=== PATIENT | female | born 1990 | race Caucasian/White ===

== ENCOUNTER 2016-06-26 11:29 | Emergency (ER) | payer OTHER, MEDICAID ==
[2016-06-26] MEDS ORDERED: predniSONE 20 MG TABLET PO STA (12:22)
[2016-06-26] MEDS ORDERED: SULFAMETH/TRIMETH DS 800/160 MG TABLET PO STA (12:22)
[2016-06-26] MEDS ORDERED: predniSONE 20 MG TABLET ONE (12:24)
[2016-06-26] MEDS ORDERED: SULFAMETH/TRIMETH DS 800/160 MG TABLET PO ONE (12:25)
== END 2016-06-26 12:38 | disposition home or self-care (01) ==
DX: L03.112 Cellulitis of left axilla (principal); L30.9 Dermatitis, unspecified; F17.200 Nicotine dependence, unspecified, uncomplicated
CPT/HCPCS: 99283; A9270; J7512

== ENCOUNTER 2016-10-26 12:44 | Emergency (ER) | payer MEDICAID, OTHER ==
[2016-10-26 12:55] VITALS: BP 144/88
[2016-10-26] MEDS ORDERED: LIDOCAINE-EPINEPH-TETRACAINE 3 ML SYRINGE TOP STA (14:58)
[2016-10-26] MEDS ORDERED: IBUPROFEN 400 MG TABLET PO STA (14:58)
[2016-10-26] MEDS ORDERED: ACETAMINOPHEN 325 MG TABLET PO STA (14:58)
[2016-10-26] MEDS ORDERED: LIDOCAINE-EPINEPH-TETRACAINE 3 ML SYRINGE TOP ONE (15:06)
[2016-10-26] MEDS ORDERED: IBUPROFEN 400 MG TABLET PO ONE (15:06)
[2016-10-26] MEDS ORDERED: ACETAMINOPHEN 325 MG TABLET PO ONE (15:07)
--- NOTE | 2016-10-26 15:34 | ED Physician Documentation ---
History of Present Illness - Stated complaint Stated Complaint: FEMALE - Chief complaint Chief Complaint: General - Additonal information Additional information: hx from pt 26 f denies preg L inguinal abscess Review of Systems : denies: Now EGA Skin: reports: Lesions PD PAST MEDICAL HISTORY - Past Medical History Past Medical History: No : None HEENT: Other Psych: None Musculoskeletal: None Derm: Eczema - Past Surgical History Past Surgical History: Yes Ortho: ACL reconstruction - Present Medications Home Medications: Ambulatory Orders Medication Instructions Recorded Confirmed Prednisone 40 mg PO DAILY #10 tablet 06/26/16 Sulfamethoxazole/Trimethoprim 1 each PO BID #14 tablet 06/26/16 [Bactrim Ds Tablet] Sulfamethox/Trimeth 800/160 1 each PO BID #14 tablet 10/26/16 [Bactrim Ds 800/160] - Allergies Allergies/Adverse Reactions: Allergies Allergy/AdvReac Type Severity Reaction Status Date / Time No Known Drug Allergies Allergy Verified 12/31/15 11:45 - Social History Does the pt smoke?: Yes Smoking Status: Current every day smoker Does the pt drink ETOH?: Yes Does the pt have substance abuse?: No - Immunizations Immunizations are current?: No - POLST Patient has POLST: No PD ED PE NORMAL - Vitals Vital signs reviewed: Yes - Cardiac Cardiac: RRR - Respiratory Respiratory: Clear bilaterally - Derm Derm: Other (approx 1 X 2 cm abscess inferior medial inguinal region ) Results - Vitals Vitals: Vital Signs - 24 hr 10/26/16 12:52 Temperature 36.3 C L Heart Rate 99 Respiratory 16 Rate Blood Pressure 144/88 H O2 Saturation 99 Oxygen O2 Source Room air Procedures - Abscess I&D (location) L inguinal Preparation: Betadine, LET Incision: Incised with scalpel, Purulent drainage (suprisingly large amt - approx 10 cc), Loculations broken, Culture obtained. No: Packed (fully evacuated no further fluctuance) Other: Pt tolerated well, Dressing applied, Antibiotic prescribed Departure - Departure Disposition: 01 Home, Self Care Clinical Impression: Abscess Condition: Good Instructions: ED Abscess IandD Prescriptions: Sulfamethox/Trimeth 800/160 [Bactrim Ds 800/160] 1 each PO BID #14 tablet Comments: Apply warm compresses several times a day to encourage drainage. Take the antibiotic as prescribed. Tylenol and motrin for the pain Return if worse And please follow up with your PMD to get your blood pressure rechecked - it was high today Forms: Activity restrictions
== END 2016-10-26 15:44 | disposition home or self-care (01) ==
LOC: ED 12:44
DX: L02.214 Cutaneous abscess of groin (principal); F17.200 Nicotine dependence, unspecified, uncomplicated
CPT/HCPCS: 10060; 87070; 87205; 99283; A9270

== ENCOUNTER 2016-10-28 14:05 | Emergency (ER) | payer MEDICAID ==
[2016-10-28 14:30] VITALS: BP 111/83
[2016-10-28] MEDS ORDERED: LIDOCAINE 2%-EPI 1:100000 20 ML MDV ONE (15:22)
--- NOTE | 2016-10-28 15:38 | ED Physician Documentation ---
PD HPI WOUND RECHECK - Stated complaint Stated Complaint: POSSIBLE CYST - Chief complaint Chief Complaint: Wound - Histroy obtained from History obtained from: Patient, Family - History of Present Illness Location: Other (L groin) Timing - onset: How many days ago (3) Pain level max: 8 Pain level now: 6 Associated symptoms: Redness, Swelling, Drainage, Pain. No: Fever Similar symptoms before: Diagnosis (abscess) Recently seen: Emergency Dept (drained 2 days ago, now increasing in size and pain.) Review of Systems Constitutional: denies: Fever, Chills Cardiac: denies: Chest pain / pressure Respiratory: denies: Cough GI: denies: Abdominal Pain, Nausea, Vomiting, Diarrhea : denies: Dysuria, Frequency, Hesitancy, Now EGA PD PAST MEDICAL HISTORY - Past Medical History Past Medical History: No : None HEENT: Other Psych: None Musculoskeletal: None Derm: Eczema - Past Surgical History Past Surgical History: Yes Ortho: ACL reconstruction - Present Medications Home Medications: Ambulatory Orders Medication Instructions Recorded Confirmed Prednisone 40 mg PO DAILY #10 tablet 06/26/16 Sulfamethoxazole/Trimethoprim 1 each PO BID #14 tablet 06/26/16 [Bactrim Ds Tablet] Sulfamethox/Trimeth 800/160 1 each PO BID #14 tablet 10/26/16 [Bactrim Ds 800/160] - Allergies Allergies/Adverse Reactions: Allergies Allergy/AdvReac Type Severity Reaction Status Date / Time No Known Drug Allergies Allergy Verified 10/28/16 14:30 - Social History Does the pt smoke?: Yes Smoking Status: Current every day smoker Does the pt drink ETOH?: Yes Does the pt have substance abuse?: No - Immunizations Immunizations are current?: No - POLST Patient has POLST: No PD ED PE NORMAL - Vitals Vital signs reviewed: Yes - General General: Alert and oriented X 3, No acute distress - Derm Derm: Warm and dry - Extremities Extremities: Other (L groin - abscess 2x4cm, indurated, fluctuant. NVI) - Neuro Neuro: Alert and oriented X 3 - Psych Psych: Normal mood Results - Vitals Vitals: Vital Signs - 24 hr 10/28/16 14:28 Temperature 36.5 C Heart Rate 91 Respiratory 12 Rate Blood Pressure 111/83 H O2 Saturation 100 Oxygen O2 Source Room air Procedures - Abscess I&D (location) L groin Preparation: Confirmed with ultrasound, Lidocaine 2 %, With epi Incision: Incised with scalpel, Needle aspiration, Purulent drainage, Loculations broken, Packed, Culture obtained Other: Pt tolerated well, Dressing applied, Antibiotic prescribed (prior visit) PD MEDICAL DECISION MAKING - ED course Complexity details: reviewed old records, reviewed results, considered differential, d/w patient, d/w family ED course: Patient with a abscess to the left groin. This was incised and drained. Tolerated well. Patient is already started on antibiotics. Minimal surrounding cellulitis. Culture was not redone as this was performed on the first drainage. Patient counseled regarding signs and symptoms for which I believe and urgent re-evaluation would be necessary. Patient with good understanding of and agreement to plan and is comfortable going home at this time This document was made in part using voice recognition software. While efforts are made to proofread this document, sound alike and grammatical errors may occur. Departure - Departure Disposition: 01 Home, Self Care Clinical Impression: Abscess Condition: Good Instructions: ED Abscess IandD Follow-Up: your,doctor in 3 days for wound check [Other] Comments: Take all antibiotics until gone. Return if you worsen. This should improve over the next 2-3 days. Forms: Activity restrictions Discharge Date/Time: 10/28/16 16:01
== END 2016-10-28 16:01 | disposition home or self-care (01) ==
LOC: ED 14:05
DX: L02.214 Cutaneous abscess of groin (principal); F17.200 Nicotine dependence, unspecified, uncomplicated
CPT/HCPCS: 10060; 99283

== ENCOUNTER 2017-01-04 17:52 | Emergency (ER) | payer OTHER, MEDICAID ==
[2017-01-04 18:00] VITALS: BP 128/81
[2017-01-04 18:21] LABS: BILIRUBIN,URINE NEGATIVE (NEGATIVE); PH,URINE 7.5 PH (5.0-7.5)
[2017-01-04 18:22] LABS: UA w/ MICROSCOPIC CHARGE YES
[2017-01-04 18:23] LABS: HCG UR QUAL NEGATIVE
[2017-01-04 18:37] LABS: RAPID STREP SCREEN REAGENT QC YELLOW (YELLOW)
[2017-01-04 18:50] LABS: UR CULTURE IF IND NOT INDICATED; WBC,URINE 0-3 /HPF (0-5)
== END 2017-01-04 18:50 | disposition left against medical advice (07) ==
LOC: ED 17:52
DX: Z53.21 Procedure and treatment not carried out due to patient leaving prior to being seen by health care provider (principal)
CPT/HCPCS: 81001; 81003; 81025; 87070; 87086; 87430

== ENCOUNTER 2017-01-16 14:06 | Emergency (ER) | payer MEDICAID, OTHER ==
--- NOTE | 2017-01-16 17:10 | ED Physician Documentation ---
PD HPI FEMALE - Stated complaint Stated Complaint: FEMALE - Chief complaint Chief Complaint: Wound - History obtained from History obtained from: Patient - History of Present Illness Timing - onset: Yesterday Timing - details: Abrupt onset, Still present (getting bigger quickly) Associated symptoms: Other (abscess left inguinal area). 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 HEENT: Other Psych: None Musculoskeletal: None Derm: Eczema - Past Surgical History Past Surgical History: Yes Ortho: ACL reconstruction - Present Medications Home Medications: Ambulatory Orders Medication Instructions Recorded Confirmed HYDROcod/ACETAM 5/325 [[place] 5/325] 1 tab PO Q6H PRN #15 tablet 01/16/17 Sulfamethox/Trimeth 800/160 1 each PO BID #14 tablet 01/16/17 [Bactrim Ds 800/160] - Allergies Allergies/Adverse Reactions: Allergies Allergy/AdvReac Type Severity Reaction Status Date / Time No Known Drug Allergies Allergy Verified 01/04/17 17:58 - Social History Does the pt smoke?: Yes Smoking Status: Current every day smoker Does the pt drink ETOH?: Yes Does the pt have substance abuse?: No - Immunizations Immunizations are current?: No - POLST Patient has POLST: No PD ED PE NORMAL - Vitals Vital signs reviewed: Yes - General General: Alert and oriented X 3, No acute distress, Well developed/nourished - Female Female : Deferred - Back Back: No CVA TTP - Derm Derm: Normal color, Warm and dry, Other (left inguinal crease with small 2 cm abscess but is red/warm/tender. ) - Neuro Neuro: Alert and oriented X 3, No motor deficit, No sensory deficit Results - Vitals Vitals: Oxygen O2 Source Room air Procedures - Abscess I&D (location) left inguinal crease Preparation: Lidocaine 1%, With epi Incision: Incised with scalpel, Purulent drainage, Irrigated, Packed. No: Culture obtained Other: Pt tolerated well, Dressing applied, Antibiotic prescribed PD MEDICAL DECISION MAKING - ED course Complexity details: reviewed results (recurrent abscess same area (somewhat recent though) so talked with her about removal of infection sac after wound healed.), considered differential, d/w patient Departure - Departure Disposition: 01 Home, Self Care Clinical Impression: Inguinal abscess Condition: Stable Record reviewed to determine appropriate education?: Yes Instructions: ED Staph Infec Abx Tx Only Follow-Up: [facility] [Provider Group] Tanvi Aragon DO [Provider Admit Priv/Credential] - Prescriptions: HYDROcod/ACETAM 5/325 [[place] 5/325] 1 tab PO Q6H PRN #15 tablet PRN Reason: Pain Sulfamethox/Trimeth 800/160 [Bactrim Ds 800/160] 1 each PO BID #14 tablet Comments: Warm towels or soaks to the area to increase blood flow and help fight infection a few times a day. Tylenol or ibuprofen if needed for pain. Add hydrocodone if needed for worse pain. Bactrim twice daily for a week for the infection. He can remove the wick or allowed to fall out after a day or so. Recheck if the infection does not seem all improved over the next few days. Once it is resolved, follow-up with gynecology or dermatology with the idea of having the cyst sac removed so as to prevent recurrent infection in that same spot. Discharge Date/Time: 01/16/17 18:19
[2017-01-16] MEDS ORDERED: IBUPROFEN 600 MG TABLET PO STA (17:34)
[2017-01-16] MEDS ORDERED: SULFAMETH/TRIMETH DS 800/160 MG TABLET PO STA (17:34)
[2017-01-16] MEDS ORDERED: HYDROcod/ACETAM 5/325 MG TABLET PO STA (17:34)
[2017-01-16] MEDS ORDERED: SULFAMETH/TRIMETH DS 800/160 MG TABLET PO ONE (17:47)
[2017-01-16] MEDS ORDERED: HYDROcod/ACETAM 5/325 MG TABLET ONE (17:47)
[2017-01-16] MEDS ORDERED: IBUPROFEN 600 MG TABLET PO ONE (17:48)
[2017-01-16 18:09] VITALS: BP 133/62
== END 2017-01-16 18:19 | disposition home or self-care (01) ==
LOC: ED 14:06
DX: L02.214 Cutaneous abscess of groin (principal); F17.200 Nicotine dependence, unspecified, uncomplicated
CPT/HCPCS: 10060; 99283; A9270

== ENCOUNTER 2018-06-02 13:04 | Emergency (ER) | payer MEDICAID, OTHER ==
[2018-06-02 13:21] VITALS: BP 125/67
[2018-06-02] MEDS ORDERED: TETANUS/DIPHTHERIA/PERTUSSIS 0.5 ML SYRINGE IM ONE (14:16)
[2018-06-02] MEDS ORDERED: LIDOCAINE 2% 10 ML MDV SUBQ STA (14:16)
--- NOTE | 2018-06-02 14:23 | ED Physician Documentation ---
PD HPI UPPER EXT INJURY - Stated complaint Stated Complaint: R INDEX FINGER LAC - Chief complaint Chief Complaint: Laceration - History obtained from History obtained from: Patient - History of Present Illness Location: Right, Finger (index) Type of injury: Laceration (with knife at home) Where injury occurred: Home Timing - onset: How many hours ago (1) Timing - duration: Hours (1) Timing - details: Abrupt onset Pain level max: 4 Pain level now: 2 Improved by: Rest Worsened by: Moving, Palpating Associated symptoms: No: Weakness, Numbness, Tingling, Swelling Contributing factors: No: Anticoagulated Similar symptoms before: Has not had sx before Recently seen: Not recently seen - Additonal information Additional information: unknown last tetanus shot. 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 HEENT: Other Psych: None Musculoskeletal: None Derm: Eczema - Past Surgical History Past Surgical History: Yes Ortho: ACL reconstruction - Present Medications Home Medications: Ambulatory Orders Medication Instructions Recorded Confirmed Pnv No.95/Ferrous Fum/Folic AC 1 each PO 06/02/18 [ Caplet] - Allergies Allergies/Adverse Reactions: Allergies Allergy/AdvReac Type Severity Reaction Status Date / Time No Known Drug Allergies Allergy Verified 06/02/18 14:12 - Social History Does the pt smoke?: Yes Smoking Status: Current every day smoker Does the pt drink ETOH?: Yes Does the pt have substance abuse?: No - Immunizations Immunizations are current?: No - POLST Patient has POLST: No PD ED PE NORMAL - Vitals Vital signs reviewed: Yes - General General: Alert and oriented X 3, No acute distress - Derm Derm: Warm and dry - Extremities Extremities: Other (R index finger - 2.5 cm linear laceration just proximal to the PIP joint, lateral aspect. flap) - Neuro Neuro: Alert and oriented X 3 Results - Vitals Vitals: Vital Signs - 24 hr 06/02/18 13:18 Temperature 36.6 C Heart Rate 94 Respiratory 16 Rate Blood Pressure 125/67 O2 Saturation 100 Oxygen O2 Source Room air Procedures - Laceration (location) R index finger Length in cm: 2.5 Wound type: Linear, Flap, Clean Neurovascular status: Sensory intact, Motor intact, Vascular intact Tendon involvement: Tendon intact Anesthesia: Lidocaine 2% (transthecal block) Skin layer closure: Nylon, Size #-0 - enter number (4), Sutures - enter # (5) Other: Patient tolerated well, No complications, Neurovascular intact, Tetanus booster given Complexity: Simple PD MEDICAL DECISION MAKING - ED course Complexity details: considered differential, d/w patient ED course: 27-year-old female with a right index finger laceration. This was repaired. Tolerated well. Neurovascularly intact. No foreign bodies. No tendon or vascular injury. Warnings of infection and instructions on wound care given at bedside. Also counseled on how to minimize scarring. Patient counseled regarding signs and symptoms for which I believe and urgent re-evaluation would be necessary. Patient with good understanding of and agreement to plan and is comfortable going home at this time This document was made in part using voice recognition software. While efforts are made to proofread this document, sound alike and grammatical errors may occur. Departure - Departure Disposition: 01 Home, Self Care Clinical Impression: Finger laceration Qualifiers: Encounter type: initial encounter Finger: index finger Damage to nail status: without damage Foreign body presence: without foreign body Laterality: right Qualified Code(s): S61.210A - Laceration without foreign body of right index finger without damage to nail, initial encounter Condition: Good Instructions: ED Laceration Hand Follow-Up: Provider,Other [Primary Care Provider] - Within 1 week Comments: Keep the wound clean. Follow-up with your doctor for further care. The stitches should be removed in 10-14 days either with your doctor or here. Return if you notice redness, swelling or drainage from the wound Discharge Date/Time: 06/02/18 15:10
[2018-06-02] MEDS ORDERED: BACITRACIN OINT TOP STA (15:01)
[2018-06-02] MEDS ORDERED: BACITRACIN OINT TOP ONE (15:03)
== END 2018-06-02 15:10 | disposition home or self-care (01) ==
LOC: ED 13:04
DX: S61.210A Laceration without foreign body of right index finger without damage to nail, initial encounter (principal); W26.0XXA Contact with knife, initial encounter; Y93.89 Activity, other specified; Y92.009 Unspecified place in unspecified non-institutional (private) residence as the place of occurrence of the external cause; F17.200 Nicotine dependence, unspecified, uncomplicated
CPT/HCPCS: 12001; 90471; 90715; 99282; 99283; A9270

== ENCOUNTER 2018-08-22 08:13 | Outpatient (CLI) | payer OTHER ==
--- NOTE | 2018-08-22 10:40 | Ultrasound Report ---
Reason: TEST POSITIVE Procedure Date: 08/22/2018 Accession Number: [id number] / [id number] Procedure: US - OB First Trimester CPT Code: FULL RESULT: EXAM: FIRST TRIMESTER OBSTETRIC ULTRASOUND (Less than 11 weeks) EXAM DATE: 08/22/2018 10:00 AM. CLINICAL HISTORY: test positive. LMP: 07/02/2018. COMPARISONS: BISQUE GRADER 11/08/2011 9:06 AM. Pelvic ultrasound 12/31/2015. TECHNIQUE: Transabdominal and transvaginal ultrasound examination with static image documentation. CLINICAL DATES: EGA 7 weeks 2 days with ROSY 04/08/2019 based on LMP. ASSESSMENT: Gestational Sac: Single intrauterine. Mean gestational sac diameter: 21.5 mm = 6 weeks 5 days. Embryo: CRL (crown-rump length) 7.1 mm = 6 weeks 4 days. Cardiac activity: 113 beats per minute. Yolk sac: 2.7 mm. Amniotic fluid: Not accurately assessed at this gestational age. Early placenta: Not visible at this gestational age. Other: No perigestational fluid collection demonstrated. MATERNAL STRUCTURES: Uterus: Anteverted. 6.4 x 5.9 x 6.6 cm exophytic mass extending from the posterior uterine myometrium. Review of prior pelvic ultrasound 12/31/2015 shows similar mass measuring 3 cm. Cervix: Closed. Right Ovary/Adnexa: The ovary measures 2.7 x 1.9 x 2.3 cm, volume 6.2 cc. Unremarkable. Left Ovary/Adnexa: The ovary measures 3.3 x 2.3 x 3.4 cm, volume 13.5 cc. Unremarkable. Free Fluid: None. Other: None. IMPRESSION: 1. Single viable intrauterine at EGA 6 weeks 4 days with ROSY 04/13/2019 based on crown-rump length, which is concordant, but 5 days delayed with clinical dates. 2. Assigned dating is ROSY 7 weeks 2 days based on LMP. 3. 6.6 cm exophytic fibroid posterior uterine myometrium increased in size since 2015, and apparently new since 2011. RADIA
== END 2018-08-22 08:14 | disposition home or self-care (01) ==
LOC: DI 08:13
PROVIDERS: ATTEND Registered Nurse
DX: Z32.01 Encounter for pregnancy test, result positive (principal); O34.11 Maternal care for benign tumor of corpus uteri, first trimester; D25.9 Leiomyoma of uterus, unspecified; Z3A.01 Less than 8 weeks gestation of pregnancy
CPT/HCPCS: 76801; 76817

== ENCOUNTER 2018-08-25 15:03 | Emergency (ER) | payer OTHER ==
[2018-08-25 15:09] VITALS: BP 130/96
--- NOTE | 2018-08-25 15:36 | ED Physician Documentation ---
PD HPI URI - Stated complaint Stated Complaint: CONGESTED/8 WKS - Chief complaint Chief Complaint: General - History obtained from History obtained from: Patient - History of Present Illness Timing - onset: How many days ago (55) Timing duration: Days Timing details: Gradual onset, Still present Associated symptoms: Nasal congestion, Rhinorrhea, Dry cough, Dyspnea Improves by: Rest, Medication Worsened by: Activity Similar symptoms before: Has not had sx before Recently seen: Not recently seen - Additional information Additional information: Previously well 28-year-old female who is 8 weeks has developed a cough and congestion over the past week and these have progressed to where she is now short of breath at rest. She has not had to use an inhaler previously she does not have a diagnosis of asthma and she has not had recent infection. She has had care. Review of Systems Constitutional: denies: Fever Eyes: denies: Decreased vision Ears: denies: Ear pain Nose: reports: Rhinorrhea / runny nose, Congestion Throat: reports: Sore throat Cardiac: denies: Chest pain / pressure, Palpitations Respiratory: reports: Dyspnea, Cough, Wheezing GI: reports: Nausea, Vomiting. 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 HEENT: Other Psych: None Musculoskeletal: None Derm: Eczema - Past Surgical History Past Surgical History: Yes Ortho: ACL reconstruction - Present Medications Home Medications: Ambulatory Orders Medication Instructions Recorded Confirmed Pnv No.95/Ferrous Fum/Folic AC 1 each PO 06/02/18 [ Caplet] Albuterol Sulf [Ventolin Hfa 1 - 2 puffs INH Q4HR PRN #1 inhaler 08/25/18 Inhaler] Azithromycin [Zithromax] 250 mg PO DAILY #6 tablet 08/25/18 - Allergies Allergies/Adverse Reactions: Allergies Allergy/AdvReac Type Severity Reaction Status Date / Time No Known Drug Allergies Allergy Verified 08/25/18 15:09 - Social History Does the pt smoke?: Yes Smoking Status: Current every day smoker Does the pt drink ETOH?: Yes Does the pt have substance abuse?: No - Immunizations Immunizations are current?: No - POLST Patient has POLST: No PD ED PE NORMAL - Vitals Vital signs reviewed: Yes (tadchy and hypertensive ) - General General: Alert and oriented X 3, Well developed/nourished, Other (labor to breath is evident ) - HEENT HEENT: Atraumatic, PERRL, EOMI, Other (right TM is flush the left is erythemat ous with flatening of the landmarks. ) - Neck Neck: Supple, no meningeal sign, No bony TTP - Cardiac Cardiac: RRR, No murmur - Respiratory Respiratory: Other (tachypneic at rest with shallow breathing that appears labored and the patient has no voice. ) - Abdomen Abdomen: Soft, Non tender - Back Back: No CVA TTP, No spinal TTP - Derm Derm: Normal color, Warm and dry, No rash - Extremities Extremities: No deformity, No edema - Neuro Neuro: Alert and oriented X 3, office technologist 2-12 intact, No motor deficit, No sensory deficit, Normal speech Eye Opening: Spontaneous Motor: Obeys Commands Verbal: Oriented GCS Score: 15 - Psych Psych: Normal mood, Normal affect Results - Vitals Vitals: Vital Signs - 24 hr 08/25/18 08/25/18 15:05 15:53 Temperature 36.6 C Heart Rate 122 H 100 Respiratory 18 18 Rate Blood Pressure 130/96 H O2 Saturation 99 Oxygen O2 Source Room air PD MEDICAL DECISION MAKING - ED course Complexity details: reviewed results, re-evaluated patient, considered differential, d/w patient, d/w family ED course: 28-year-old female with URI with RAD has otitis on exam and she is administered a DuoNeb treatment with some improvement in her air movement she is taught the use of the inhaler with a spacer. I discussed with the patient avoiding glucocorticoids at this point and returning to the emergency department should she not have improvement in her breathing over the next 2 to 3 days. Departure - Departure Disposition: 01 Home, Self Care Clinical Impression: Otitis media Qualifiers: Otitis media type: suppurative Chronicity: acute Laterality: left Recurrence: non-recurrent Spontaneous tympanic membrane rupture: without spontaneous rupture Qualified Code(s): H66.002 - Acute suppurative otitis media without spontaneous rupture of ear drum, left ear Reactive airway disease Qualifiers: Asthma severity: mild Asthma persistence: intermittent Asthma complication type: with acute exacerbation Qualified Code(s): J45.21 - Mild intermittent asthma with (acute) exacerbation Condition: Stable Instructions: ED Otitis Media Acute Adult, ED Reactive Airway Disease Follow-Up: [facility] [Provider Group] Prescriptions: Albuterol Sulf [Ventolin Hfa Inhaler] 1 - 2 puffs INH Q4HR PRN #1 inhaler PRN Reason: Shortness Of Air/Wheezing Azithromycin [Zithromax] 250 mg PO DAILY #6 tablet Forms: Activity restrictions
[2018-08-25] MEDS ORDERED: IPRATROPIUM/ALBUTEROL 3 ML NEB INH STA (15:44)
== END 2018-08-25 16:23 | disposition home or self-care (01) ==
LOC: ED 15:03
DX: O99.511 Diseases of the respiratory system complicating pregnancy, first trimester (principal); J06.9 Acute upper respiratory infection, unspecified; J45.21 Mild intermittent asthma with (acute) exacerbation; O99.89 Other specified diseases and conditions complicating pregnancy, childbirth and the puerperium; H66.002 Acute suppurative otitis media without spontaneous rupture of ear drum, left ear; O99.331 Smoking (tobacco) complicating pregnancy, first trimester; Z3A.08 8 weeks gestation of pregnancy
CPT/HCPCS: 94640; 94664; 99283

== ENCOUNTER 2018-09-04 08:00 | Outpatient (CLI) | payer OTHER ==
[2018-09-04 17:11] LABS: BILIRUBIN,URINE NEGATIVE (NEGATIVE); GLUCOSE, URINE (UA) NEGATIVE (NEGATIVE); KETONES,URINE (UA) NEGATIVE (NEGATIVE); LEUKOCYTE ESTERASE, URINE NEGATIVE (NEGATIVE); NITRITE,URINE NEGATIVE (NEGATIVE); OCCULT BLOOD,URINE NEGATIVE (NEGATIVE); PH,URINE 8.5 PH (5.0-7.5); PROTEIN,URINE NEGATIVE (NEGATIVE); UROBILINOGEN,URINE 0.2 (NORMAL) E.U./dL (NORMAL)
[2018-09-04 17:27] LABS: CLARITY,URINE CLOUDY (CLEAR)
[2018-09-04 17:29] LABS: BACTERIA,URINE Few /HPF (None Seen); RBC,URINE 0-5 /HPF (0-5); SQUAMOUS EPITHELIAL CELL,UR MANY Squamous (<= Few)
[2018-09-04 17:30] LABS: AMORPHOUS SEDIMENT,UR Marked /LPF; AMPHETAMINE SCREEN,URINE NEGATIVE (NEGATIVE); BENZODIAZEPINES SCREEN, URINE NEGATIVE (NEGATIVE); COCAINE SCREEN URINE NEGATIVE (NEGATIVE); METHADONE SCREEN, URINE NEGATIVE (NEGATIVE); METHAMPHETAMINES SCREEN, URINE NEGATIVE (NEGATIVE); MUDS CUTOFF CONCENTRATIONS CUTOFF CONC BELOW:; OPIATE SCREEN, URINE NEGATIVE (NEGATIVE); OXYCODONE SCREEN, URINE NEGATIVE (NEGATIVE); PROPOXYPHENE SCREEN, URINE NEGATIVE (NEGATIVE); TRICYCLIC ANTIDEPRESSANT,URINE NEGATIVE (NEGATIVE)
[2018-09-04 21:22] LABS: TRICHOMONAS VAGINALIS DNA NEGATIVE (NEGATIVE)
== END 2018-09-04 23:59 | disposition home or self-care (01) ==
LOC: LAB.R 08:00
PROVIDERS: ATTEND Registered Nurse
DX: Z36.89 Encounter for other specified antenatal screening (principal)
CPT/HCPCS: 80306; 81001; 87086; 87491; 87591; 87661

== ENCOUNTER 2018-09-04 11:44 | Outpatient (CLI) | payer OTHER ==
[2018-09-04 12:12] LABS: BASOPHILS # (AUTO) 0.1 10^3/uL (0.0-0.1); BASOPHILS % (AUTO) 0.9 %; EOSINOPHILS # (AUTO) 0.1 10^3/uL (0.0-0.7); EOSINOPHILS % (AUTO) 0.9 %; HGB - HEMOGLOBIN 12.4 g/dL (12.0-16.0); LYMPHOCYTES # (AUTO) 1.6 10^3/uL (1.5-3.5); LYMPHOCYTES % (AUTO) 19.2 %; MEAN CORPUSCULAR HGB CONC 34.8 g/dL (32.0-36.0); MEAN CORPUSCULAR VOLUME 91.8 fL (81.0-99.0); MEAN PLATELET VOLUME 7.1 fL (7.9-10.8); MONOCYTES # (AUTO) 0.5 10^3/uL (0.0-1.0); MONOCYTES % (AUTO) 5.7 %; NEUTROPHILS # (AUTO) 5.9 10^3/uL (1.5-6.6); NEUTROPHILS % (AUTO) 73.3 %; PLT - PLATELET COUNT 293 10^3/uL (130-450); RED BLOOD COUNT 3.86 10^6/uL (4.20-5.40); RED CELL DISTRIBUTION WIDTH 12.3 % (12.0-15.0); WHITE BLOOD COUNT 8.1 x10^3/uL (4.8-10.8)
[2018-09-05 13:06] LABS: HIV AG/AB 4TH GEN NON-REACTIVE (NON-REACTIVE)
[2018-09-05 13:31] LABS: HEPATITIS B SURFACE ANTIGEN NON-REACTIVE (NON-REACTIVE)
[2018-09-05 13:33] LABS: HEPATITIS C ANTIBODY NON-REACTIVE (NON-REACTIVE)
== END 2018-09-04 11:45 | disposition home or self-care (01) ==
LOC: LAB 11:44
PROVIDERS: ATTEND Registered Nurse
DX: Z36.89 Encounter for other specified antenatal screening (principal)
CPT/HCPCS: 36415; 80306; 81001; 81599; 85025; 86592; 86762; 86803; 86850; 86900; 86901; 87340; 87389; 87491; 87591; 87661

== ENCOUNTER 2018-09-11 10:41 | Outpatient (CLI) | payer SELFPAY | END 2018-09-11 10:42 | disposition home or self-care (01) | LOC: LAB 10:41 | PROVIDERS: ATTEND Registered Nurse | DX: Z36.89 Encounter for other specified antenatal screening (principal) | CPT/HCPCS: 36415 ==

== ENCOUNTER 2018-11-19 16:26 | Outpatient (CLI) | payer OTHER | END 2018-11-19 23:59 | disposition home or self-care (01) | LOC: LAB.R 16:26 | PROVIDERS: ATTEND Obstetrics & Gynecology | DX: R30.0 Dysuria (principal) | CPT/HCPCS: 87086 ==

== ENCOUNTER 2018-11-27 06:47 | Outpatient (CLI) | payer OTHER ==
--- NOTE | 2018-11-28 09:45 | Ultrasound Report ---
Reason: ENCOUNTER FOR OTHER SPECIFIED SCREENING Procedure Date: 11/27/2018 Accession Number: [id number] / [id number] Procedure: US - OB Detailed Eval CPT Code: FULL RESULT: EXAM: COMPLETE OBSTETRICAL ULTRASOUND EXAM DATE: 11/27/2018 09:21 AM. CLINICAL HISTORY: anatomic survey. COMPARISON: 08/22/2018. TECHNIQUE: Real-time sonographic evaluation of the fetus performed by the corporate counselor. Multiple bank representative static images were saved for review. Additional transvaginal imaging to more accurately evaluate cervical length/placental position/etc. DATING: Established EGA 21 weeks 1 day with ROSY 04/08/2019 based on physician stated/last menstrual period. EGA 20 weeks 6 days with ROSY 04/10/2019 based on the current ultrasound. GENERAL EVALUATION Syed . Cardiac activity: 139 bpm. movement: Visualized. Presentation: Cephalic. Placenta: Posterior position. Marginal placenta previa terminating at the internal os. Umbilical cord: 3 vessel cord. Central placental cord origin. Amniotic fluid: Subjectively normal. MVP 4.5 cm. BIOMETRY Bi-Parietal Diameter (BPD): 5 cm, 21 weeks 2 days Head Circumference (HC): 18.5 cm, 20 weeks 6 days Abdominal Circumference (AC): 16.5 cm, 21 weeks 4 days Femur Length (FL): 3.5 cm, 21 weeks 1 day Estimated Weight: 415 g, 54th percentile for 21 weeks 1 day. ANATOMY The intracranial structures, profile, face/nose/lips, spine, 4 chamber heart and outflow tracts, stomach, abdominal wall and cord insertion, diaphragm, kidneys, bladder, and extremities were visualized and demonstrate no abnormality. MATERNAL STRUCTURES Uterus: Posterior low uterine fibroid is again noted today measuring 7 x 6.5 x 0.7 cm. Cervix: Long and closed. Transvaginal length 5 cm. Right ovary/adnexa: Unremarkable. Left ovary/adnexa: Unremarkable. Free fluid: None. IMPRESSION: 1. Syed live intrauterine with gestational age 21 weeks 1 day based on physician stated.. 2. Estimated weight is within expected limits for assigned dating. 3. Normal anatomic survey. No anatomic abnormalities are detected at this time. 4. Posterior placenta with marginal placenta previa. 5. 8.7 cm low posterior uterine fibroid. RADIA
== END 2018-11-27 06:48 | disposition home or self-care (01) ==
LOC: DI 06:47
PROVIDERS: ATTEND Nurse Practitioner Obstetrics & Gynecology
DX: Z36.89 Encounter for other specified antenatal screening (principal); O34.12 Maternal care for benign tumor of corpus uteri, second trimester; O62.8 Other abnormalities of forces of labor; O99.89 Other specified diseases and conditions complicating pregnancy, childbirth and the puerperium; R30.0 Dysuria; Z3A.21 21 weeks gestation of pregnancy
CPT/HCPCS: 76811; 76817

== ENCOUNTER 2018-12-17 09:50 | Outpatient (CLI) | payer OTHER ==
--- NOTE | 2018-12-17 13:18 | Ultrasound Report ---
Reason: PLACENTA PREVIA W/HEMORRHAGE, 2ND TRIMESTER Procedure Date: 12/17/2018 Accession Number: [id number] / [id number] Procedure: US - OB F/U or Repeat CPT Code: FULL RESULT: EXAM: FOLLOW-UP OBSTETRICAL ULTRASOUND EXAM DATE: 12/17/2018 10:40 AM. CLINICAL HISTORY: PLACENTA PREVIA W/HEMORRHAGE, 2ND TRIMESTER. COMPARISON: OB DETAILED EVAL 11/27/2018 7:17 AM. TECHNIQUE: Real-time sonographic evaluation of the fetus performed by the electronics utility worker. Additional transvaginal imaging to more accurately evaluate cervical length/placental position/etc. Multiple sales development representative static images were saved for review. DATING: Established EGA 24 weeks 0 days with ROSY 04/08/2019 based on provider stated. EGA 23 weeks 3 days with ROSY 04/12/2019 based on the current ultrasound. GENERAL EVALUATION Syed . Cardiac activity: 135 bpm. movement: Visualized. Presentation: Breech. Placenta: Posterior, low lying position. The placental edge abuts the internal cervical os. Amniotic fluid: Normal. TIMOTEO 14.4 cm. MVP 5.1 cm. BIOMETRY Bi-Parietal Diameter (BPD): 5.3 cm, 23 weeks 4 days. Head Circumference (HC): 21.4 cm, 23 weeks 3 days. Abdominal Circumference (AC): 18.5 cm, 23 weeks 2 days. Femur Length (FL): 4.2 cm, 23 weeks 4 days. Estimated Weight: 593 g, 18.4 percentile for 24 weeks 0 days (previously 54th percentile). MATERNAL STRUCTURES Redemonstrated fibroid within the lower uterine segment measuring 7.8 x 7.7 x 5.4 cm. The cervix is closed measuring 6.2 cm in length on transvaginal imaging. IMPRESSION: 1. Syed live intrauterine in breech presentation with gestational age 24 weeks 0 days based on provider stated. 2. Estimated weight is within expected limits for assigned dating, although now at the 18th percentile and previously at the 54th percentile for gestational age. 3. Posterior placenta with redemonstration of low lying position with the placental edge abutting the internal cervical os. 4. Large fibroid again seen at the lower uterine segment. 5. Normal amniotic fluid index, 14.4 cm. ANTONIO
== END 2018-12-17 09:51 | disposition home or self-care (01) ==
LOC: DI 09:50
PROVIDERS: ATTEND Nurse Practitioner Obstetrics & Gynecology
DX: O44.12 Complete placenta previa with hemorrhage, second trimester (principal); O34.12 Maternal care for benign tumor of corpus uteri, second trimester; D25.9 Leiomyoma of uterus, unspecified; Z3A.24 24 weeks gestation of pregnancy; O32.1XX0 Maternal care for breech presentation, not applicable or unspecified
CPT/HCPCS: 76816; 76817

== ENCOUNTER 2019-01-07 09:49 | Outpatient (CLI) | payer OTHER ==
--- NOTE | 2019-01-07 11:58 | Ultrasound Report ---
Reason: PLACENTA PREVIA WITHOUT HEMORRHAGE SECOND TRIMESTE Procedure Date: 01/07/2019 Accession Number: [id number] / [id number] Procedure: US - OB F/U or Repeat CPT Code: FULL RESULT: EXAM: FOLLOW-UP OBSTETRICAL ULTRASOUND EXAM DATE: 01/07/2019 11:36 AM. CLINICAL HISTORY: Follow up low-lying posterior placenta with borderline previa. COMPARISON: OB F/U OR REPEAT 12/17/2018 10:03 AM. TECHNIQUE: Real-time sonographic evaluation of the fetus performed by the mechanics supervisor. Additional transvaginal imaging to more accurately evaluate cervical length/placental position/etc. Multiple rental representative static images were saved for review. DATING: Established EGA 27 weeks 0 days with ROSY 03/12/2019 based on LMP. EGA 26 weeks 2 days with ROSY 04/13/2019 based on prior ultrasound. EGA 27 weeks 2 days with ROSY 04/06/2019 based on the current ultrasound. GENERAL EVALUATION Syed . Cardiac activity: 130 bpm. movement: Visualized. Presentation: Breech. Placenta: Posterior position. Again, the placental margin abuts the internal os, but evaluation is complicated by nearby 7.3 x 5.4 x 7.9 cm diameter cervical fibroid which distorts the cervical anatomy. Amniotic fluid: Normal. TIMOTEO 18.5 cm. MVP 6.3 cm. BIOMETRY Bi-Parietal Diameter (BPD): 6.8 cm, 27 weeks 5 days Head Circumference (HC): 25.0 cm, 27 weeks 1 day Abdominal Circumference (AC): 22.4 cm, 26 weeks 6 days Femur Length (FL): 5.0 cm, 27 weeks 1 day Estimated Weight: 1018 g, 39 percentile. ANATOMY Limited evaluation. MATERNAL STRUCTURES Cervical length is 4.1 cm. See above description of cervical fibroid. IMPRESSION: 1. Syed live intrauterine with gestational age 27 weeks 2 days based on current ultrasound. 2. Estimated weight is within expected limits for assigned dating. 3. Little change in posterior placenta with placental edge abutting the internal cervical os. Evaluation is technically challenging because of large cervical fibroid. Recommend continued followup. RADIA
== END 2019-01-07 09:50 | disposition home or self-care (01) ==
LOC: DI 09:49
PROVIDERS: ATTEND Obstetrics & Gynecology
DX: O44.02 Complete placenta previa NOS or without hemorrhage, second trimester (principal); O34.12 Maternal care for benign tumor of corpus uteri, second trimester; D25.9 Leiomyoma of uterus, unspecified; Z3A.27 27 weeks gestation of pregnancy
CPT/HCPCS: 76816

== ENCOUNTER 2019-01-14 12:41 | Outpatient (CLI) | payer OTHER ==
[2019-01-14 14:03] LABS: HGB - HEMOGLOBIN 10.6 g/dL (12.0-16.0); MEAN CORPUSCULAR HEMOGLOBIN 30.8 pg (27.0-31.0); MEAN CORPUSCULAR HGB CONC 33.4 g/dL (32.0-36.0); MEAN CORPUSCULAR VOLUME 92.2 fL (81.0-99.0); MEAN PLATELET VOLUME 9.2 fL (7.9-10.8); RED BLOOD COUNT 3.44 10^6/uL (4.20-5.40); RED CELL DISTRIBUTION WIDTH 12.7 % (12.0-15.0)
== END 2019-01-14 12:42 | disposition home or self-care (01) ==
LOC: LAB 12:41
PROVIDERS: ATTEND Nurse Practitioner Obstetrics & Gynecology
DX: Z36.89 Encounter for other specified antenatal screening (principal)
CPT/HCPCS: 36415; 82950; 85027; 86850

== ENCOUNTER 2019-02-04 09:36 | Outpatient (CLI) | payer OTHER ==
--- NOTE | 2019-02-04 14:11 | Ultrasound Report ---
Reason: PLACENTA PREVIA WITHOUT HEMORRHAGE SECOND TRIMESTE Procedure Date: 02/04/2019 Accession Number: [id number] / [id number] Procedure: US - OB F/U or Repeat CPT Code: FULL RESULT: EXAM: FOLLOW-UP OBSTETRICAL ULTRASOUND EXAM DATE: 02/04/2019 10:56 AM. CLINICAL HISTORY: PLACENTA PREVIA WITHOUT HEMORRHAGE SECOND TRIMESTE. COMPARISON: OB F/U OR REPEAT 01/07/2019 10:39 AM. TECHNIQUE: Real-time sonographic evaluation of the fetus performed by the transplant immunologist. Additional transvaginal imaging to more accurately evaluate cervical length/placental position/etc. Multiple real estate representative static images were saved for review. GENERAL EVALUATION Syed . Cardiac activity: 135 bpm. movement: Visualized. Presentation: Cephalic. Placenta: Posterior position. Amniotic fluid: Normal. TIMOTEO 23 cm. MVP 7.8 cm. BIOMETRY Bi-Parietal Diameter (BPD): 7.6 cm, 30 weeks/ 5 days Head Circumference (HC): 28.36 cm, 31 weeks/1 day Abdominal Circumference (AC): 26.4 cm, 30 weeks/4 days Femur Length (FL): 5.9 cm, 30 weeks/5 days Estimated Weight: 1625 g, 28.5 percentile for weeks/days. MATERNAL STRUCTURES A hypoechoic rounded well-defined intramural fibroid seen at posterior lower uterine segment measuring 7.7 x 5.7 x 7.3 cm. (Away from the internal os). IMPRESSION: 1. Syed live intrauterine with gestational age 30 weeks/6 days based on current ultrasound. 2. Estimated weight is within expected limits for assigned dating. 3. Low margin of placenta is approximately 1.4 cm from internal os (represents grade 1 or minor placenta previa. RADIA
== END 2019-02-04 09:37 | disposition home or self-care (01) ==
LOC: DI 09:36
PROVIDERS: ATTEND Nurse Practitioner Obstetrics & Gynecology
DX: O44.02 Complete placenta previa NOS or without hemorrhage, second trimester (principal); Z3A.30 30 weeks gestation of pregnancy
CPT/HCPCS: 76816

== ENCOUNTER 2019-02-12 12:56 | Outpatient (CLI) | payer OTHER ==
[2019-02-12 13:06] LABS: HGB - HEMOGLOBIN 10.6 g/dL (12.0-16.0); MEAN CORPUSCULAR HEMOGLOBIN 30.7 pg (27.0-31.0); MEAN CORPUSCULAR HGB CONC 33.9 g/dL (32.0-36.0); MEAN CORPUSCULAR VOLUME 90.7 fL (81.0-99.0); MEAN PLATELET VOLUME 9.1 fL (7.9-10.8); RED BLOOD COUNT 3.45 10^6/uL (4.20-5.40); RED CELL DISTRIBUTION WIDTH 13.2 % (12.0-15.0); WHITE BLOOD COUNT 11.5 x10^3/uL (4.8-10.8)
== END 2019-02-12 12:57 | disposition home or self-care (01) ==
LOC: LAB 12:56
PROVIDERS: ATTEND Nurse Practitioner Obstetrics & Gynecology
DX: O99.019 Anemia complicating pregnancy, unspecified trimester (principal); Z3A.00 Weeks of gestation of pregnancy not specified
CPT/HCPCS: 36415; 85027

== ENCOUNTER 2019-02-18 09:49 | Outpatient (CLI) | payer OTHER ==
--- NOTE | 2019-02-18 13:13 | Ultrasound Report ---
Reason: PLACENTA PREVIA, UTERINE FIBROIDS Procedure Date: 02/18/2019 Accession Number: [id number] / [id number] Procedure: US - OB F/U or Repeat CPT Code: Final Report FULL RESULT: EXAM: FOLLOW-UP OBSTETRICAL ULTRASOUND EXAM DATE: 02/18/2019 10:35 AM. CLINICAL HISTORY: PLACENTA PREVIA, UTERINE FIBROIDS. COMPARISON: OB F/U OR REPEAT 02/04/2019 9:46 AM. TECHNIQUE: Real-time sonographic evaluation of the fetus performed by the cigarette paper tester. Multiple promotional representative static images were saved for review. DATING: Established EGA 33 weeks 0 days with ROSY 04/08/2019 based on assigned dating. EGA 32 weeks 2 days with ROSY 04/13/2019 based on ultrasound 08/22/2018. GENERAL EVALUATION Syed . Cardiac activity: 125 bpm. movement: Visualized. Presentation: Cephalic. Placenta: Posterior position. No placenta previa Amniotic fluid: Normal. TIMOTEO 18.1 cm. MVP 6.9 cm. MATERNAL STRUCTURES Posterior fibroid difficult to see due to head proximal 6.9 x 6.9 x 5.6 cm previously 7.7 x 5.7 x 7.3 cm IMPRESSION: 1. Syed live intrauterine with gestational age 33 weeks 0 days based on assigned dating 2. By transabdominal ultrasound no placenta previa. Trans-vaginal ultrasound is recommended to rule out vasa previa when following up rule out placenta previa 3. Posterior fibroid similar largest measurement 6.9 cm. RADIA
== END 2019-02-18 09:50 | disposition home or self-care (01) ==
LOC: DI 09:49
PROVIDERS: ATTEND Obstetrics & Gynecology
DX: O34.13 Maternal care for benign tumor of corpus uteri, third trimester (principal); Z3A.33 33 weeks gestation of pregnancy
CPT/HCPCS: 76816

== ENCOUNTER 2019-03-12 12:00 | Outpatient (CLI) | payer OTHER ==
[2019-03-12 21:09] LABS: TRICHOMONAS VAGINALIS DNA NEGATIVE (NEGATIVE)
== END 2019-03-12 23:59 | disposition home or self-care (01) ==
LOC: LAB.R 12:00
PROVIDERS: ATTEND Nurse Practitioner Obstetrics & Gynecology
DX: Z36.85 Encounter for antenatal screening for Streptococcus B (principal)
CPT/HCPCS: 87491; 87591; 87661; 87797

== ENCOUNTER 2019-03-12 13:22 | Outpatient (CLI) | payer OTHER ==
[2019-03-12 13:32] LABS: MEAN CORPUSCULAR HGB CONC 34.2 g/dL (32.0-36.0); MEAN CORPUSCULAR VOLUME 90.7 fL (81.0-99.0); MEAN PLATELET VOLUME 9.4 fL (7.9-10.8); RED BLOOD COUNT 3.87 10^6/uL (4.20-5.40); RED CELL DISTRIBUTION WIDTH 13.2 % (12.0-15.0); WHITE BLOOD COUNT 11.8 x10^3/uL (4.8-10.8)
== END 2019-03-12 13:23 | disposition home or self-care (01) ==
LOC: LAB 13:22
PROVIDERS: ATTEND Nurse Practitioner Obstetrics & Gynecology
DX: Z36.85 Encounter for antenatal screening for Streptococcus B (principal); O99.019 Anemia complicating pregnancy, unspecified trimester; Z3A.00 Weeks of gestation of pregnancy not specified
CPT/HCPCS: 36415; 85027; 87491; 87591; 87661; 87797

== ENCOUNTER 2019-04-01 16:53 | Observation (INO) | payer OTHER ==
[2019-04-01] MEDS ORDERED: SODIUM CHLORIDE FLUSH 0.9% 10 ML SYRINGE IVP PRN (17:34)
[2019-04-01] MEDS ORDERED: LACTATED RINGERS 1,000 ML IV SCH (18:00)
[2019-04-01 18:01] LABS: BASOPHILS % (AUTO) 0.3 %; EOSINOPHILS # (AUTO) 0.1 10^3/uL (0.0-0.7); EOSINOPHILS % (AUTO) 0.4 %; HGB - HEMOGLOBIN 11.8 g/dL (12.0-16.0); LYMPHOCYTES # (AUTO) 1.5 10^3/uL (1.5-3.5); LYMPHOCYTES % (AUTO) 13.5 %; MEAN CORPUSCULAR HEMOGLOBIN 31.2 pg (27.0-31.0); MEAN CORPUSCULAR HGB CONC 34.8 g/dL (32.0-36.0); MEAN CORPUSCULAR VOLUME 89.7 fL (81.0-99.0); MEAN PLATELET VOLUME 10.4 fL (7.9-10.8); MONOCYTES # (AUTO) 0.7 10^3/uL (0.0-1.0); NEUTROPHILS % (AUTO) 78.9 %; PLT - PLATELET COUNT 262 10^3/uL (130-450); RED BLOOD COUNT 3.78 10^6/uL (4.20-5.40); RED CELL DISTRIBUTION WIDTH 13.1 % (12.0-15.0); WHITE BLOOD COUNT 11.3 x10^3/uL (4.8-10.8)
[2019-04-01] MEDS: miSOPROStoL 100 MCG TABLET BC SCH ×2 (18:07→21:57)
[2019-04-01] MEDS ORDERED: CALCIUM CARBONATE CHEW 500 MG TABLET PO PRN (19:32)
--- NOTE | 2019-04-01 19:39 | PREOP HISTORY & PHYSICAL ---
DATE OF SERVICE: 04/01/2019 Physician: Norberto Gibbs MD IDENTIFICATION: Patient is a 28-year-old, G1, P0, female whose EDC is 04/08/2019. This was makes he r 39 weeks 0 days. She has had early OB care starting at 9 weeks EGA. She is here for an elective i nduction. PAST MEDICAL HISTORY: Unremarkable at this time. She has had some anemia during her . PAST SURGICAL HISTORY: Positive for knee surgery as well as sinus surgery. ALLERGIES: NONE KNOWN. CURRENT MEDICATIONS 1. Iron 2. vitamins. HABITS: Patient stopped smoking. Denies drinking at this time. SOCIAL HISTORY: Patient is at this point. HISTORY OF PRESENT ILLNESS: Patient is OB care started at 9 weeks EGA. Her 50 gram Glucola was 86. Initially, her CBC showed a hemoglobin of 12.3, hematocrit 35. However, as progressed, th is has dropped to 31 grams of hemoglobin. She has had a normal TSH. She is HIV, RPR, chlamydia and GC negative. She is rubella immune. Patient had a [place] test, which was noted to be normal. She is GBS negative. PHYSICAL EXAMINATION: GENERAL: Well-developed, well-nourished, white female in no acute distress at this time. VITAL SIGNS: Noted to be normal. HEENT: Pupils are equal, round. Extraocular muscles intact. Thyroid is not palpably enlarged. HEART: Regular rate and rhythm without murmurs. LUNGS: Lung astorga are clear without rales or wheezes. ABDOMEN: Gravid, nontender. She has reactive NST at this time. PELVIC: Cervical examination performed by the nurse noted the cervix to be fingertip at this time. DTRs are +2. She has no clonus. IMPRESSION: A 28-year-old primigravida 39 weeks EGA here for elective induction. She has received m isoprostol 50 mcg orally. We will allow her to rest and as cervix changes, we will treat appropriate ly. TD: 04/01/2019 19:15
[2019-04-01] MEDS ORDERED: ZOLPIDEM 5 MG TABLET PO PRN (22:42)
[2019-04-01] MEDS ORDERED: FAMOTIDINE 20 MG TABLET PO SCH (23:00)
[2019-04-02] MEDS ORDERED: SODIUM CHLORIDE FLUSH 0.9% 10 ML SYRINGE IVP SCH (01:00)
[2019-04-02] MEDS: miSOPROStoL 100 MCG TABLET BC SCH ×2 (02:21→07:39)
[2019-04-02] MEDS ORDERED: ONDANSETRON ODT 4 MG TABLET TL PRN (07:35)
[2019-04-02] MEDS ORDERED: HYDROCORTISONE 1% CREAM 28 GM TUBE PR PRN (07:35)
[2019-04-02] MEDS ORDERED: OXYTOCIN/DEXTROSE 5 % 30 UNIT/500 ML BAG IV PRN (07:35)
[2019-04-02] MEDS ORDERED: WITCH HAZEL/GLYCERIN 1 PAD TOP PRN (07:35)
[2019-04-02] MEDS ORDERED: IBUPROFEN 800 MG TABLET PO SCH (08:00)
[2019-04-02] MEDS ORDERED: ACETAMINOPHEN 500 MG TABLET PO SCH (08:00)
[2019-04-02] MEDS ORDERED: DOCUSATE SODIUM 100 MG CAPSULE PO SCH (09:00)
--- NOTE | 2019-04-02 10:26 | Discharge Plan ---
Discharge Plan Problem Reviewed?: Yes Disposition: Home, Self Care Condition: Good Diet: Regular Activity Restrictions: No Restrictions Shower Restrictions: No No Smoking: If you smoke, Please STOP! Call for help. Follow-up with: KAMRAN PHAN MD, PHD [Physician No Access] -
--- NOTE | 2019-04-02 13:38 | DISCHARGE SUMMARY ---
Physician: Colleen Montgomery MD DATE OF ADMISSION: 04/01/2019 DATE OF DISCHARGE: 04/02/2019 DISCHARGE DIAGNOSES 1. Intrauterine at 39 weeks. 2. Elective induction of labor. DISCHARGE DIAGNOSES 1. Failed induction of labor, antepartum. 2. Fibroid during , antepartum. OPERATIONS AND PROCEDURES: Attempted induction of labor with misoprostol. HOSPITAL COURSE: Patient is a 28-year-old, G1, whose due date on admission was 39 weeks based on las t menstrual period, that was 5 days off from 6-week 4-day ultrasound. She had wanted to be socially induced because of family being in town. During her induction, she was not ripe at admission. Her s tarting examination was 1 cm, 50% effaced, minus 3 station, soft and posterior, which is a [place] sco re of 3. She received 4 doses of misoprostol for induction of labor. Following the fourth dose, she started to have some mild consistent uterine cramping, but no discrete contractions. She did not zimmerman ve any vaginal bleeding or leaking of water. Her movement remained good throughout the hospita lization. Throughout the hospitalization, she had a category 1 surveillance without other prob lems. Her tocometry was showing irregular and infrequent contractions. Patient was counseled by myself and Jacy Waggoner, her production quality analyst, that discharged home while was recommended. Patient does have a 7 cm fibroid in her posterior right lower uterine segment. I revi ewed all of her ultrasound images. At times, radiology has described it as "exophytic", "intramural" and "cervical." On my review, it seems to be subserosal and in the lower uterine segment. Patient also had a posterior previa that resolved at 36 weeks. We discussed that the presence of a previa an d the 7 cm fibroid reflect cervix and lower uterine segment that are already not normal. As she has not had any cervical change despite many doses of ripening agents, I am concerned that further attemp ts at vaginal delivery currently, would increase the risk of section and hemorrhage. Bryan peña is already at higher risk for hemorrhage based on her 7 cm fibroid in the lower uterine segment, wh ich would be the most dynamic part of the uterus during her labor and delivery. Jacy and Latasha both di scussed that her chances of vaginal delivery are lower given the size and location of her fibroid. W e related that this would most likely manifest as lack of cervical dilation if it were to be a proble m. She is not having cervical dilation now, but hopefully this is just because her cervix is not yet ready to dilate due to her alone and independent of the presence of her fibroid. At this time, discharge was strongly recommended with waiting for spontaneous labor. Patient was appropriate ly tearful and surprised by the change in plan, but eventually she was accepting of it as it was the lowest risk option. All questions were answered to her satisfaction. DISCHARGE DISPOSITION: Home. DISCHARGE CONDITION: Good. FOLLOWUP: In [address] Matt. TD: 04/02/2019 10:24
== END 2019-04-02 11:50 | disposition home or self-care (01) ==
LOC: WFO 16:53 → FBP 16:55 → WFO 17:04 → FBP 17:05 → UNDOADMOB 17:05 → FBP 17:34 → UNDODISOB 04-02 11:50
PROVIDERS: ADMIT Obstetrics & Gynecology; ATTEND Obstetrics & Gynecology
DX: O61.0 Failed medical induction of labor (principal); O34.13 Maternal care for benign tumor of corpus uteri, third trimester; D25.2 Subserosal leiomyoma of uterus; O99.013 Anemia complicating pregnancy, third trimester; Z3A.39 39 weeks gestation of pregnancy
CPT/HCPCS: 36415; 85025; A9270; G0378

== ENCOUNTER 2019-04-12 22:27 | Inpatient (IN) | payer OTHER ==
[2019-04-12] MEDS ORDERED: SODIUM CHLORIDE FLUSH 0.9% 10 ML SYRINGE IVP PRN (23:18)
[2019-04-12] MEDS ORDERED: ONDANSETRON 4 MG/2 ML VIAL IVP PRN (23:18)
[2019-04-12] MEDS ORDERED: fentaNYL 100 MCG/2 ML VIAL IVP PRN (23:18)
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
[2019-04-12] MEDS ORDERED: ZOLPIDEM 5 MG TABLET PO PRN (23:51)
[2019-04-13] MEDS: LACTATED RINGERS 1,000 ML IV SCH ×2 (00:30→05:57)
[2019-04-13] MEDS: OXYTOCIN/DEXTROSE 5 % 30 UNIT/500 ML BAG IV SCH ×3 (01:00→02:28)
[2019-04-13] MEDS ORDERED: SODIUM CHLORIDE FLUSH 0.9% 10 ML SYRINGE IVP SCH (01:00)
[2019-04-13 01:26] LABS: BASOPHILS % (AUTO) 0.3 %; EOSINOPHILS # (AUTO) 0.1 10^3/uL (0.0-0.7); EOSINOPHILS % (AUTO) 0.8 %; HGB - HEMOGLOBIN 11.9 g/dL (12.0-16.0); LYMPHOCYTES # (AUTO) 2.2 10^3/uL (1.5-3.5); LYMPHOCYTES % (AUTO) 17.9 %; MEAN CORPUSCULAR HGB CONC 34.7 g/dL (32.0-36.0); MEAN CORPUSCULAR VOLUME 89.3 fL (81.0-99.0); MONOCYTES # (AUTO) 0.8 10^3/uL (0.0-1.0); MONOCYTES % (AUTO) 6.6 %; NEUTROPHILS % (AUTO) 73.5 %; PLT - PLATELET COUNT 272 10^3/uL (130-450); RED BLOOD COUNT 3.84 10^6/uL (4.20-5.40); RED CELL DISTRIBUTION WIDTH 13.1 % (12.0-15.0); WHITE BLOOD COUNT 12.2 x10^3/uL (4.8-10.8)
[2019-04-13] MEDS ORDERED: LEVONORGESTREL 20 MCG/24H IUD IY ONE (03:39)
--- NOTE | 2019-04-13 03:39 | PROVIDER PROGRESS NOTE ---
Subjective - Prog Note Date Prog Note Date: 04/13/19 Prog Note Time: 03:37 - Subjective Subjective: Starting to feel contractions, a little uncomfortable. VSS afeb Cat 1 tracing Pit at 6. Exam deferred Would like fentanyl. Will proceed. Epidural when requested. Objective - Vital Signs/Intake & Output Vital Signs: Vital Signs x48h Pulse Resp BP 04/12/19 23:02 87 16 131/87 H Intake & Output: Intake & Output 04/10/19 04/11/19 04/12/19 04/13/19 23:59 23:59 23:59 23:59 Intake Total 500 4.400 Balance 500 4.400 - Lab Results Fish Bones: 04/12/19 00:25 Other Labs: Lab Results x24hrs 04/12/19 04/12/19 Range/Units 00:25 00:25 WBC 12.2 H (4.8-10.8) x10^3/uL RBC 3.84 L (4.20-5.40) 10^6/uL Hgb 11.9 L (12.0-16.0) g/dL Hct 34.3 L (37.0-47.0) % MCV 89.3 (81.0-99.0) fL MCH 31.0 (27.0-31.0) pg MCHC 34.7 (32.0-36.0) g/dL RDW 13.1 (12.0-15.0) % Plt Count 272 (130-450) 10^3/uL MPV 11.0 H (7.9-10.8) fL Neut # (Auto) 9.0 H (1.5-6.6) 10^3/uL Lymph # (Auto) 2.2 (1.5-3.5) 10^3/uL [place] # (Auto) 0.8 (0.0-1.0) 10^3/uL Eos # (Auto) 0.1 (0.0-0.7) 10^3/uL Baso # (Auto) 0.0 (0.0-0.1) 10^3/uL Absolute Nucleated RBC 0.00 x10^3/uL Nucleated RBC % 0.0 /100WBC Blood Type O POSITIVE Antibody Screen NEGATIVE
[2019-04-13] MEDS ORDERED: ROPIVACAINE 0.2% 200 MG/100 ML BAG EP ONE (04:21)
[2019-04-13] MEDS ORDERED: ONDANSETRON 4 MG/2 ML VIAL IVP PRN (05:06)
[2019-04-13] MEDS ORDERED: ePHEDrine 50 MG/ML VIAL IVP PRN (05:06)
[2019-04-13] MEDS ORDERED: NALBUPHINE 10 MG/ML AMP IVP PRN (05:06)
[2019-04-13] MEDS ORDERED: diphenhydrAMINE INJ 50 MG/ML VIAL IVP PRN (05:06)
[2019-04-13] MEDS ORDERED: METOCLOPRAMIDE 10 MG/2 ML VIAL IVP PRN (05:06)
[2019-04-13] MEDS ORDERED: ROPIVACAINE 0.2% 200 MG/100 ML BAG EP PRN (05:06)
[2019-04-13] MEDS ORDERED: NALOXONE 0.4 MG/ML VIAL IVP PRN (05:06)
[2019-04-13] MEDS ORDERED: LACTATED RINGERS 500 ML IV ONE (05:06)
--- NOTE | 2019-04-13 05:10 | ANESTHESIA ---
Pre-Anesthesia VS, & Labs - Diagnosis active labor - Procedure labor epidural Vital Signs: Temp Pulse Resp BP Pulse Ox 87 16 131/87 H 04/12/19 23:02 04/12/19 23:02 04/12/19 23:02 Height 5 ft 4 in Body Mass Index 24.0 - NPO Other (clears) - Is Patient ?: Yes - Lab Results Current Lab Results: Laboratory Tests 04/12/19 00:25: Blood Type O POSITIVE, Antibody Screen NEGATIVE 04/12/19 00:25: WBC 12.2 H, RBC 3.84 L, Hgb 11.9 L, Hct 34.3 L, MCV 89.3, MCH 31.0, MCHC 34.7, RDW 13.1, Plt Count 272, MPV 11.0 H, Neut # (Auto) 9.0 H, Lymph # (Auto) 2.2, [place] # (Auto) 0.8, Eos # (Auto) 0.1, Baso # (Auto) 0.0, Absolute Nucleated RBC 0.00, Nucleated RBC % 0.0 Fish Bones: 04/12/19 00:25 Home Medications and Allergies Active Medications Acetaminophen (Tylenol) 650 mg PO Q6H PRN PRN Reason: PAIN Fentanyl (Fentanyl) 50 mcg IVP Q1H PRN PRN Reason: PAIN Last Admin: 04/13/19 03:42 Dose: 50 mcg Lactated Ringer's (Lr) 1,000 mls @ 150 mls/hr IV .Q6H40M AISLINN Last Admin: 04/13/19 00:30 Dose: 150 mls/hr OXYTOCIN/DEXTROSE 5 % (Pitocin/Dextrose 5%) 30 unit in 500 mls @ 2 mls/hr IV TITR AISLINN; Protocol Last Admin: 04/13/19 02:28 Dose: 6 milliunit/min, 6 mls/hr Ondansetron HCl (Zofran Inj) 4 mg IVP Q4H PRN PRN Reason: Nausea / Vomiting Last Admin: 04/13/19 03:40 Dose: 4 mg Sodium Chloride (Normal Saline Flush 0.9%) 10 ml IVP PRN PRN PRN Reason: NEEDED PER PROVIDER ORDERS Sodium Chloride (Normal Saline Flush 0.9%) 10 ml IVP 0100,0900,1700 [facility] Zolpidem Tartrate (Ambien) 5 mg PO QPM PRN PRN Reason: Insomnia Last Admin: 04/13/19 01:19 Dose: 5 mg Pnv No.95/Ferrous Fum/Folic AC [ Caplet] 1 each PO 06/02/18 Allergies/Adverse Reactions: Allergies Allergy/AdvReac Type Severity Reaction Status Date / Time No Known Drug Allergies Allergy Verified 08/25/18 15:09 Anes History & Medical History - Anesthetic History Anesthesia Complications: reports: No previous complications - Medical History Cardiovascular: reports: None Pulmonary: reports: None Gastrointestinal: reports: GERD Urinary: reports: None Musculoskeletal: reports: None Skin: reports: Eczema Smoking Status: Former smoker - Surgical History Orthopedic: ACL reconstruction - Obstetrical History : 1 Parity: 0 Events: positive: Other (Fibroid uterus. 6.6cm posterior subserosal fibroid. Iron deficiency anemia) Complications: positive: Other (Anemia Fibroid as noted) Exam General: Alert, Cooperative Dental: WNL Mouth Opening: Greater than 4 Fingerbreadths Neck Mobility: Normal Mallampati classification: II Respiratory: Normal breath sounds Cardiovascular: Regular rate Extremities: Other (pedial edema) Mental/Cognitive Status: Alert/Oriented X3 Plan Anesthesia Type: Epidural Consent for Procedure(s) Verified and Reviewed: Yes Code Status: Attempt Resuscitation ASA classification: 2-Mild systemic disease Is this case an emergency?: No
--- NOTE | 2019-04-13 06:17 | PROVIDER PROGRESS NOTE ---
Subjective - Prog Note Date Prog Note Date: 04/13/19 Prog Note Time: 06:15 - Subjective Subjective: Very comfortable with epidural. Pit at 10mu/min, contractions q3-5, some lasting <30sec VSS afeb Category 1 tracing, baseline low ~110-115. No decels +accels Felder placed, pale, clear urine Exam deferred Continue IOL Objective - Vital Signs/Intake & Output Vital Signs: Vital Signs x48h Pulse Resp BP 04/12/19 23:02 87 16 131/87 H Intake & Output: Intake & Output 04/10/19 04/11/19 04/12/19 04/13/19 23:59 23:59 23:59 23:59 Intake Total 500 23.400 Balance 500 23.400 - Lab Results Fish Bones: 04/12/19 00:25 Other Labs: Lab Results x24hrs 04/12/19 04/12/19 Range/Units 00:25 00:25 WBC 12.2 H (4.8-10.8) x10^3/uL RBC 3.84 L (4.20-5.40) 10^6/uL Hgb 11.9 L (12.0-16.0) g/dL Hct 34.3 L (37.0-47.0) % MCV 89.3 (81.0-99.0) fL MCH 31.0 (27.0-31.0) pg MCHC 34.7 (32.0-36.0) g/dL RDW 13.1 (12.0-15.0) % Plt Count 272 (130-450) 10^3/uL MPV 11.0 H (7.9-10.8) fL Neut # (Auto) 9.0 H (1.5-6.6) 10^3/uL Lymph # (Auto) 2.2 (1.5-3.5) 10^3/uL [place] # (Auto) 0.8 (0.0-1.0) 10^3/uL Eos # (Auto) 0.1 (0.0-0.7) 10^3/uL Baso # (Auto) 0.0 (0.0-0.1) 10^3/uL Absolute Nucleated RBC 0.00 x10^3/uL Nucleated RBC % 0.0 /100WBC Blood Type O POSITIVE Antibody Screen NEGATIVE
[2019-04-13] MEDS ORDERED: LACTATED RINGERS 1,000 ML IV SCH ×2 (06:18→12:00)
[2019-04-13] MEDS ORDERED: LIDOCAINE-MPF 1% 30 ML VIAL ONE (09:56)
[2019-04-13] MEDS ORDERED: OXYTOCIN/DEXTROSE 5 % 30 UNIT/500 ML BAG IV ONE (09:56)
[2019-04-13] MEDS ORDERED: METHYLERGONOVINE 0.2 MG/ML VIAL ONE (10:04)
[2019-04-13] MEDS ORDERED: miSOPROStoL 200 MCG TABLET ONE (10:04)
--- NOTE | 2019-04-13 10:50 | PROVIDER PROGRESS NOTE ---
Subjective - Prog Note Date Prog Note Date: 04/13/19 Prog Note Time: 09:30 - Subjective Subjective: Urgently called to LDR for bradycardia. VSS afeb Precipitous progress to full dilation, +3 station. Deep decels followed by terminal bradycardia. Quickly discussed need for forcep assisted delivery, patient agrees. See delivery note Objective - Vital Signs/Intake & Output Intake & Output: Intake & Output 04/10/19 04/11/19 04/12/19 04/13/19 23:59 23:59 23:59 23:59 Intake Total 500 2773.767 Output Total 400 Balance 500 2373.767 - Lab Results Fish Bones: 04/12/19 00:25 Other Labs: Lab Results x24hrs 04/12/19 04/12/19 Range/Units 00:25 00:25 WBC 12.2 H (4.8-10.8) x10^3/uL RBC 3.84 L (4.20-5.40) 10^6/uL Hgb 11.9 L (12.0-16.0) g/dL Hct 34.3 L (37.0-47.0) % MCV 89.3 (81.0-99.0) fL MCH 31.0 (27.0-31.0) pg MCHC 34.7 (32.0-36.0) g/dL RDW 13.1 (12.0-15.0) % Plt Count 272 (130-450) 10^3/uL MPV 11.0 H (7.9-10.8) fL Neut # (Auto) 9.0 H (1.5-6.6) 10^3/uL Lymph # (Auto) 2.2 (1.5-3.5) 10^3/uL [place] # (Auto) 0.8 (0.0-1.0) 10^3/uL Eos # (Auto) 0.1 (0.0-0.7) 10^3/uL Baso # (Auto) 0.0 (0.0-0.1) 10^3/uL Absolute Nucleated RBC 0.00 x10^3/uL Nucleated RBC % 0.0 /100WBC Blood Type O POSITIVE Antibody Screen NEGATIVE
--- NOTE | 2019-04-13 10:53 | DELIVERY NOTE ---
Delivery Note - Labor Labor: positive: Induced by oxytocin - Infant Delivery Method Delivery Method: positive: Forceps assist (Luikhart forceps easily placed. Vertex OA, slight JUNI; ~10% off midline. Foel cath removed Asked pt to push prior to onset of contraction, then delivery accomplished with next contraction.) - Presentation Presentation: positive: Vertex, JUNI - left occiput anterior (See above. Vertx at +3 station) - Nuchal Cord Nuchal Cord: positive: Present (Very tight x1, not reducible) - Anesthetic Anesthetic Type: - Amniotic Fluid Description Amniotic Fluid Description: positive: Clear (SROM at 2100 on 04/12; was undergoing IOL for PROM) - Episiotomy Type Episiotomy Type: positive: None - Laceration Laceration: positive: 1st degree, Periurethral - Suture Suture Type: positive: Vicryl, Other Suture Size: positive: 3-0, 4-0 (4-0 monocryl and 3-0 vycryl used for repair of right periurethral and small first degree vaginal lacerations. Cervix, upper vagina, rectum and perineum intact) - Delivery Outcome Delivery Outcome: positive: Livebirth - : positive: Other (PPV required; see peds note) [place] sex: positive: Female - Cord Cord: positive: 3 vessels (Short cord, normally inserted.) - Placenta Placenta: positive: Intact, Spontaneous (Normal disc, intact) - Estimated Blood Loss Estimated Blood Loss (in cc): 200 - Post Delivery Events Post Delivery Events: positive: No post delivery events - Delivery Comments (Free Text/Narrative) Delivery Comments (Free Text/Narrative): Low forcep assisted vaginal delivery of a 3275gm female infant delivered from [place] at 09:45 apgars 2/4/8. Forcep delivery secondary to terminal bradycardia following precipitous dilation and descent with tight nuchal cord. Peds called and present. See note. Cord gasses sent: ABG 6.88/83.7/33.4 BE -19.7 VB.35/38.5/42.0 BE -3.9 Delivery accomplished in one contraction. Easy application Subsequent vigorous cry after initial resuscitation. Laceration and repair as noted above. Mirena IUD placed as planned; Lot [id number] exp MAY 2021 EBL 200cc
[2019-04-13] MEDS ORDERED: WITCH HAZEL/GLYCERIN 1 PAD TOP PRN (11:11)
[2019-04-13] MEDS ORDERED: HYDROCORTISONE 1% CREAM 28 GM TUBE PR PRN (11:11)
--- NOTE | 2019-04-13 11:17 | DISCHARGE SUMMARY ---
"Discharge Summary Admit Date: 04/12/19 Discharging Provider: Liz Hess MD Code Status: Attempt Resuscitation Condition at Discharge: Good Discharge Disposition: 01 Home, Self Care - DIAGNOSES Admission Diagnoses: PROM at 40 4/7 weeks Fibroid uterus - HPI History of Present Illness: 28yo G1 at 40 4/7 weeks GBS neg O admitted for IOL secondary to PROM at 9PM on the day of admission. Not in labor, vertex by scan - CONSULTS | PROCEDURES Procedures: Low forcep assisted vaginal delivery, repair of first degree lacerations Mirena IUD insertion; Lot [id number] exp May 2021 - HOSPITAL COURSE Hospital Course: Pitocin was started. Following epidural placement she precipitously progressed to full dilation with rapid descent of the baby accompanied by bradycardia that did not recover. A low forcep assisted delivery was performed without complication. A very tight nuchal cord was noted at delivery. Peds was called and was present. A 3275gm female infant Apgars 2/4/8 with a subsequent vigorous cry was delivered. Cervix, upper vagina, perineum and rectum were intact. Small first degree vaginal and right periurethral lacerations were repaired. EBL 200cc. she required support and progressed well. Her course was otherwise unremarkable. She was DC'd home on PPD 2. Mirena in place. - ALLERGIES Allergies/Adverse Reactions: Allergies Allergy/AdvReac Type Severity Reaction Status Date / Time No Known Drug Allergies Allergy Verified 08/25/18 15:09 - MEDICATIONS Home Medications: Ambulatory Orders Medication Instructions Recorded Confirmed Pnv No.95/Ferrous Fum/Folic AC 1 each PO 06/02/18 [ Caplet] Albuterol Sulf [Ventolin Hfa 1 - 2 puffs INH Q4HR PRN #1 inhaler 08/25/18 Inhaler] Azithromycin [Zithromax] 250 mg PO DAILY #6 tablet 08/25/18 - LABS Result Diagrams: 04/12/19 00:25"
[2019-04-13] MEDS: ACETAMINOPHEN 325 MG TABLET PO PRN ×2 (13:18→19:20)
[2019-04-13] MEDS: IBUPROFEN 600 MG TABLET PO PRN ×2 (13:19→19:19)
[2019-04-13] MEDS: HYDROcod/ACETAM 5/325 MG TABLET PO PRN (18:41)
--- NOTE | 2019-04-13 19:00 | PROVIDER PROGRESS NOTE ---
Subjective - Prog Note Date Prog Note Date: 04/13/19 Prog Note Time: 18:59 - Subjective Subjective: Feeling well, pain controlled. Ambulating, voiding. Ryan reg diet VSS afeb Stable Continue routine care Objective - Vital Signs/Intake & Output Vital Signs: Vital Signs x48h Temp Pulse Resp BP Pulse Ox 04/13/19 18:45 98.2 F 88 20 126/68 98 04/13/19 14:07 98.1 F 71 18 119/66 98 04/13/19 12:55 97.9 F 97 19 110/69 99 04/13/19 12:00 78 20 114/97 H 100 04/13/19 11:45 86 20 112/82 H 99 04/13/19 11:30 85 18 100/68 100 04/13/19 11:15 94 20 111/65 99 04/13/19 11:00 98.1 F 87 22 110/79 100 Intake & Output: Intake & Output 04/10/19 04/11/19 04/12/19 04/13/19 23:59 23:59 23:59 23:59 Intake Total 500 2773.767 Output Total 1850 Balance 500 923.767 - Lab Results Fish Bones: 04/12/19 00:25 Other Labs: Lab Results x24hrs 04/12/19 04/12/19 Range/Units 00:25 00:25 WBC 12.2 H (4.8-10.8) x10^3/uL RBC 3.84 L (4.20-5.40) 10^6/uL Hgb 11.9 L (12.0-16.0) g/dL Hct 34.3 L (37.0-47.0) % MCV 89.3 (81.0-99.0) fL MCH 31.0 (27.0-31.0) pg MCHC 34.7 (32.0-36.0) g/dL RDW 13.1 (12.0-15.0) % Plt Count 272 (130-450) 10^3/uL MPV 11.0 H (7.9-10.8) fL Neut # (Auto) 9.0 H (1.5-6.6) 10^3/uL Lymph # (Auto) 2.2 (1.5-3.5) 10^3/uL [place] # (Auto) 0.8 (0.0-1.0) 10^3/uL Eos # (Auto) 0.1 (0.0-0.7) 10^3/uL Baso # (Auto) 0.0 (0.0-0.1) 10^3/uL Absolute Nucleated RBC 0.00 x10^3/uL Nucleated RBC % 0.0 /100WBC Blood Type O POSITIVE Antibody Screen NEGATIVE
[2019-04-14] MEDS: HYDROcod/ACETAM 5/325 MG TABLET PO PRN ×3 (00:21→19:17)
[2019-04-14] MEDS: ACETAMINOPHEN 325 MG TABLET PO PRN ×4 (03:34→22:04)
[2019-04-14] MEDS: IBUPROFEN 600 MG TABLET PO PRN ×4 (03:35→22:05)
--- NOTE | 2019-04-14 12:42 | PROVIDER PROGRESS NOTE ---
Subjective - Prog Note Date Prog Note Date: 04/14/19 Prog Note Time: 12:39 - Subjective Subjective: PPD 1 Feeling well. Pain well controlled, minimal lochia. Ambulating, voiding, tolerating regular diet. going well with help. Baby still under obs secondary to initial need for resuscitation. Doing well also. VSS afeb Abd soft, non-tender. Fundus firm at umbilicus. Minimal labial edema. A/P Stable. Continue support and care. Expect DC home tomorrow. Objective - Vital Signs/Intake & Output Vital Signs: Vital Signs x48h Temp Pulse Resp BP Pulse Ox 04/14/19 09:54 97.9 F 90 20 107/66 98 Intake & Output: Intake & Output 04/11/19 04/12/19 04/13/19 04/14/19 23:59 23:59 23:59 23:59 Intake Total 500 3229.400 Output Total 1850 Balance 500 1379.400 - Lab Results Fish Bones: 04/12/19 00:25
[2019-04-15] MEDS: HYDROcod/ACETAM 5/325 MG TABLET PO PRN (00:52)
--- NOTE | 2019-04-15 07:39 | PROVIDER PROGRESS NOTE ---
Subjective - Prog Note Date Prog Note Date: 04/15/19 Prog Note Time: 07:37 - Subjective Subjective: PPD 2 Feeling well. Ambulating, voiding, reg diet. Minimal lochia, pain well controlled. going well. No BM yet. VSS afeb Abd soft, non-tender, fundus firm at umbilicus. A/P Stable. Plan DC home today. F/U as usual in one week. Mirena in place. Objective - Vital Signs/Intake & Output Vital Signs: Vital Signs x48h Temp Pulse Resp BP 04/15/19 00:58 209.7 F H 85 18 108/54 L Intake & Output: Intake & Output 04/12/19 04/13/19 04/14/19 04/15/19 23:59 23:59 23:59 23:59 Intake Total 500 3229.400 Output Total 1850 Balance 500 1379.400 - Lab Results Fish Bones: 04/12/19 00:25
--- NOTE | 2019-04-15 07:44 | Discharge Plan ---
Discharge Plan Problem Reviewed?: Yes Disposition: Home, Self Care Condition: Good Prescriptions: HYDROcod/ACETAM 5/325 [[place] 5/325] 1 tab PO Q4HR PRN #20 tablet PRN Reason: Pain Ibuprofen [Motrin] 600 mg PO Q6H PRN #20 tablet PRN Reason: Pain Diet: Regular Activity Restrictions: Pelvic rest Shower Restrictions: No Driving Restrictions: No Weight Bearing: Full Weight No Smoking: If you smoke, Please STOP! Call for help. Follow-up with: Norberto Gibbs MD [Provider Admit Priv/Credential] -
[2019-04-15 08:00] VITALS: BP 117/76
[2019-04-15] MEDS ORDERED: MAGNESIUM HYDROXIDE 2,400 MG/30 ML UDC PO ONE (08:11)
[2019-04-15] MEDS: ACETAMINOPHEN 325 MG TABLET PO PRN (09:32)
[2019-04-15] MEDS: IBUPROFEN 600 MG TABLET PO PRN (09:32)
--- NOTE | 2019-04-15 11:57 | Labor Flowsheet ---
Labor Flowsheet Datetime Report Generated by CPN: 04/15/2019 11:57 Datetime: 04/15/2019 07:52 VITAL SIGNS NBP Sys/Dayna/Mean (mmHg): 117 : 76 : 85 Pulse: 84 LaborFlag: Labor Datetime: 04/14/2019 16:44 SpO2 (%): 100 Datetime: 04/13/2019 09:44 Stage 2 Comments: traction applied with maternal pushing effort, descent noted Datetime: 04/13/2019 09:43 Forceps: Applied Station Vacuum/Forceps Applied: forceps applied by Dr Erber Datetime: 04/13/2019 09:42 FHR Baseline Rate : 120 Datetime: 04/13/2019 09:40 Patient Position/Activity: Semi-Fowlers I/O Interventions: Felder Discontinued STAGE 2 Pushing: Coached on Pushing Datetime: 04/13/2019 09:39 Preparation for Delivery: FSE Removed Intact Datetime: 04/13/2019 09:38 ASSESSMENT A Monitor Mode: Internal Scalp Electrode COMMUNICATION Communication: Provider at Bedside Datetime: 04/13/2019 09:36 Oxygen Amount (LPM): 10 Oxygen Method: Non-Rebreather Datetime: 04/13/2019 09:35 Monitor Interventions for FHR: FSE Applied Datetime: 04/13/2019 09:34 VAGINAL EXAM Dilatation (cm): 10.0 Effacement (%): 10 Station: 2 Exam by: P Shields RN Datetime: 04/13/2019 09:32 Comments: FHR heard in 90's, not tracing Datetime: 04/13/2019 09:30 UTERINE ACTIVITY Monitor Mode: External Frequency (min): 2-4 Quality: Strong Duration (sec): 50-80 Resting Tone (Palpate): Relaxed Variability: Moderate 6-25 bpm Accelerations: 15X15 Decelerations: Late; Variable Category: Category II Datetime: 04/13/2019 09:00 Pattern: Normal: <= 5 Contractions in 10 Minutes Datetime: 04/13/2019 08:00 MEDICATIONS Pitocin (milliunits): Increased to @ 14 Datetime: 04/13/2019 07:39 Temperature (C): 36.8 Datetime: 04/13/2019 07:30 Amniotic Fluid Color: Clear Amniotic Fluid Odor: Normal Membrane Comments: SROM 1/3 at 2130 PATIENT CARE IV/Blood Work: IV Infusing per Order Communication Comments: This RN assuming care of pt from Anna Palm RN Datetime: 04/13/2019 06:31 Pitocin Checklist: At Least 1 Acceleration of 15 bpm x 15 Seconds in 30 Minutes or Adequate Variabi lity; No More than 5 Uterine Contractions in 10 Minutes for any 20 Minute Interval; Uterus Palpates S oft between Contractions Datetime: 04/13/2019 06:15 Stage of : Labor Provider Reviewed Strip: Yes Notification Reason: Labor Status Datetime: 04/13/2019 06:01 Pain Relief Measures: Epidural Given Datetime: 04/13/2019 05:30 Monitor Interventions for UA: [place] Adjusted Datetime: 04/13/2019 05:00 Pain Presence: None/Denies Anesthesia Level Check: T10- Umbilicus Datetime: 04/13/2019 04:47 Epidural Procedure: Loading Dose Anesthesia Comments: 3ml 1% lidocaine bolus Datetime: 04/13/2019 04:30 Contraction Comments: Pt sittng or epidural. Not accurately tracing contractions FHR Baseline Changes: Bradycardia Datetime: 04/13/2019 04:28 PROCEDURE TIME OUT Procedure Verify: Correct Patient Identity; Correct Side and Site are Marked; Accurate Procedure Co nsent Form; Agreement on Procedure to be Done; Correct Patient Position; Relevant Images and Results are Properly Labeled and Displayed; Addressed Need to Administer Antibiotics or Fluids for Irrigation ; Safety Precautions Based on Patient History or Medication Use ANESTHESIA Anesthesia Plans: Epidural Epidural Positioning: Sitting Datetime: 04/13/2019 03:46 PAIN Pain Scale: 7 Pain Type: Cramping Pain Location: Abdomen Pain Goal: 0 Pain Coping: Breathing Through Contractions Comfort Measures: Breathing/Relaxation Datetime: 04/13/2019 03:44 Analgesics/Sedatives: Fentanyl (mcg) @ 50mcg Antiemetics/Antacids: Zofran (mg) @ 4
== END 2019-04-15 10:30 | disposition home or self-care (01) | DRG 807 ==
LOC: WFO 22:27 → FBP 22:33 → WFO 23:17 → FBP 23:18
PROVIDERS: ADMIT Obstetrics & Gynecology; ATTEND Obstetrics & Gynecology
PROC: 10D07Z3 Extraction of Products of Conception, Low Forceps, Via Natural or Artificial Opening (ICD-10-PCS; principal; 2019-04-13)
PROC: 0HQ9XZZ Repair Perineum Skin, External Approach (ICD-10-PCS; 2019-04-13)
PROC: 0UH97HZ Insertion of Contraceptive Device into Uterus, Via Natural or Artificial Opening (ICD-10-PCS; 2019-04-13)
DX: O42.02 Full-term premature rupture of membranes, onset of labor within 24 hours of rupture (principal); Z37.0 Single live birth; O69.1XX0 Labor and delivery complicated by cord around neck, with compression, not applicable or unspecified; O76 Abnormality in fetal heart rate and rhythm complicating labor and delivery; O70.0 First degree perineal laceration during delivery; O62.3 Precipitate labor; O34.13 Maternal care for benign tumor of corpus uteri, third trimester; D25.2 Subserosal leiomyoma of uterus; Z3A.40 40 weeks gestation of pregnancy; Z30.2 Encounter for sterilization; Z87.891 Personal history of nicotine dependence
CPT/HCPCS: 85025; 86850; 86900; 86901; A9270; J7120; J7298; 59025; 99212

== ENCOUNTER 2020-02-03 08:00 | Outpatient (CLI) | payer BC, OTHER ==
[2020-02-03 18:12] LABS: BASOPHILS # (AUTO) 0.1 10^3/uL (0.0-0.1); BASOPHILS % (AUTO) 0.7 %; EOSINOPHILS # (AUTO) 0.2 10^3/uL (0.0-0.7); EOSINOPHILS % (AUTO) 2.4 %; HGB - HEMOGLOBIN 13.5 g/dL (12.0-16.0); LYMPHOCYTES # (AUTO) 1.5 10^3/uL (1.5-3.5); LYMPHOCYTES % (AUTO) 20.3 %; MEAN CORPUSCULAR HEMOGLOBIN 32.5 pg (27.0-31.0); MEAN CORPUSCULAR HGB CONC 33.6 g/dL (32.0-36.0); MEAN CORPUSCULAR VOLUME 96.9 fL (81.0-99.0); MEAN PLATELET VOLUME 9.9 fL (7.9-10.8); MONOCYTES # (AUTO) 0.5 10^3/uL (0.0-1.0); MONOCYTES % (AUTO) 7.2 %; NEUTROPHILS # (AUTO) 5.2 10^3/uL (1.5-6.6); NEUTROPHILS % (AUTO) 68.9 %; PLT - PLATELET COUNT 268 10^3/uL (130-450); RED BLOOD COUNT 4.15 10^6/uL (4.20-5.40); RED CELL DISTRIBUTION WIDTH 13.1 % (12.0-15.0); WHITE BLOOD COUNT 7.5 x10^3/uL (4.8-10.8)
[2020-02-03 19:13] LABS: HCG,QUALITATIVE BLOOD NEGATIVE
== END 2020-02-03 23:59 | disposition home or self-care (01) ==
LOC: LAB.WCP 08:00
PROVIDERS: ATTEND Nurse Practitioner Family
DX: D50.9 Iron deficiency anemia, unspecified (principal); N91.2 Amenorrhea, unspecified
CPT/HCPCS: 36415; 84703; 85025

== ENCOUNTER 2020-04-17 08:00 | Outpatient (CLI) | payer BC, OTHER ==
[2020-04-17 17:53] LABS: MUDS CUTOFF CONCENTRATIONS CUTOFF CONC BELOW:
[2020-04-17 18:43] LABS: BILIRUBIN,URINE NEGATIVE (NEGATIVE); GLUCOSE, URINE (UA) NEGATIVE (NEGATIVE); KETONES,URINE (UA) NEGATIVE (NEGATIVE); LEUKOCYTE ESTERASE, URINE SMALL (NEGATIVE); NITRITE,URINE NEGATIVE (NEGATIVE); OCCULT BLOOD,URINE NEGATIVE (NEGATIVE); PROTEIN,URINE NEGATIVE (NEGATIVE); UROBILINOGEN,URINE 0.2 (NORMAL) E.U./dL (NORMAL)
[2020-04-17 18:53] LABS: CLARITY,URINE CLEAR (CLEAR)
[2020-04-17 18:57] LABS: RBC,URINE None Seen /HPF (0-5)
[2020-04-17 18:58] LABS: BACTERIA,URINE Moderate /HPF (None Seen); SQUAMOUS EPITHELIAL CELL,UR MANY Squamous (<= Few)
[2020-04-17 18:59] LABS: AMPHETAMINE SCREEN,URINE NEGATIVE (NEGATIVE); BENZODIAZEPINES SCREEN, URINE NEGATIVE (NEGATIVE); COCAINE SCREEN URINE NEGATIVE (NEGATIVE); METHADONE SCREEN, URINE NEGATIVE (NEGATIVE); METHAMPHETAMINES SCREEN, URINE NEGATIVE (NEGATIVE); OPIATE SCREEN, URINE NEGATIVE (NEGATIVE); OXYCODONE SCREEN, URINE NEGATIVE (NEGATIVE); PROPOXYPHENE SCREEN, URINE NEGATIVE (NEGATIVE); TRICYCLIC ANTIDEPRESSANT,URINE NEGATIVE (NEGATIVE)
== END 2020-04-17 23:59 | disposition home or self-care (01) ==
LOC: LAB.R 08:00
PROVIDERS: ATTEND Obstetrics & Gynecology
DX: Z32.01 Encounter for pregnancy test, result positive (principal)
CPT/HCPCS: 80306; 81001; 87086

== ENCOUNTER 2020-05-11 12:14 | Outpatient (CLI) | payer BC ==
--- NOTE | 2020-05-12 10:59 | Ultrasound Report ---
PROCEDURE: OB First Trimester INDICATIONS: POSITIVE TEST, UTERINE FIBROID OUTSIDE/PRIOR DATING DATA: Last menstrual period (LMP): 03/12/2020. LMP-based estimated date of delivery (ROSY): 12/17/2020. First dating scan (date and location): 29/04/2020. Estimated date of delivery (ROSY) from first dating scan: 12/17/2020. TECHNIQUE: Real-time scanning was performed of the fetus and maternal pelvic organs, with image documentation. COMPARISON: 02/20/2019 FINDINGS: Embryo: There is a gestational sac in the uterine fundus measuring approximately 3.0 cm, correspondi ng to a gestational age of 8 weeks 4 days. Within this gestational sac there is fetus with a crown-ru mp length of 1.07 cm, corresponding to a gestational age of 7 weeks 1 day. heart rate is detect ed at 150 bpm. Measurement variability in dating: +/- 4 weeks by LMP, +/- 7 days by mean sac diameter (use before 6 weeks gestation if crown-rump length not able to be measured), +/- 5 days by crown-rump length (6-12 weeks gestation). Maternal organs: There is a corpus luteum cyst in the right ovary measuring 1.9 x 1.9 x 2.37 m. Withi n the posterior lower uterine segment there is an exophytic partially intramural partially subserosal uterine fibroid measuring 5.0 x 4.8 x 6.3 cm. IMPRESSION: Single live intrauterine gestation with average ultrasound age of 7 weeks 1 day. Exophytic partially intramural and partially subserosal fibroid in the posterior lower uterine segmen t measuring up to 6.3 cm. Reviewed by: Maximino Gaxiola MD on 05/12/2020 10:57 AM PST Approved by: Maximino Gaxiola MD on 05/12/2020 10:57 AM PST Station ID: [id number]
== END 2020-05-11 12:15 | disposition home or self-care (01) ==
LOC: DI 12:14
PROVIDERS: ATTEND Obstetrics & Gynecology
DX: O34.11 Maternal care for benign tumor of corpus uteri, first trimester (principal); Z3A.01 Less than 8 weeks gestation of pregnancy

== ENCOUNTER 2020-05-22 08:00 | Outpatient (CLI) | payer BC ==
[2020-05-22 12:44] LABS: BASOPHILS # (AUTO) 0.1 10^3/uL (0.0-0.1); BASOPHILS % (AUTO) 0.5 %; EOSINOPHILS # (AUTO) 0.1 10^3/uL (0.0-0.7); EOSINOPHILS % (AUTO) 0.9 %; HCT - HEMATOCRIT 37.8 % (37.0-47.0); HGB - HEMOGLOBIN 13.1 g/dL (12.0-16.0); LYMPHOCYTES % (AUTO) 21.4 %; MEAN CORPUSCULAR HEMOGLOBIN 32.5 pg (27.0-31.0); MEAN CORPUSCULAR HGB CONC 34.7 g/dL (32.0-36.0); MEAN CORPUSCULAR VOLUME 93.8 fL (81.0-99.0); MEAN PLATELET VOLUME 8.8 fL (7.9-10.8); MONOCYTES # (AUTO) 0.5 10^3/uL (0.0-1.0); MONOCYTES % (AUTO) 5.6 %; NEUTROPHILS # (AUTO) 6.8 10^3/uL (1.5-6.6); NEUTROPHILS % (AUTO) 71.4 %; PLT - PLATELET COUNT 257 10^3/uL (130-450); RED BLOOD COUNT 4.03 10^6/uL (4.20-5.40); RED CELL DISTRIBUTION WIDTH 11.5 % (12.0-15.0); WHITE BLOOD COUNT 9.5 x10^3/uL (4.8-10.8)
[2020-05-22 22:46] LABS: CHLAMYDIA TRACHOMATIS DNA NEGATIVE (NEGATIVE); NEISSERIA GONORRHOEAE DNA NEGATIVE (NEGATIVE); TRICHOMONAS VAGINALIS DNA NEGATIVE (NEGATIVE)
[2020-05-29 09:06] LABS: HEPATITIS B SURFACE ANTIGEN NON-REACTIVE
[2020-05-29 09:09] LABS: HIV AG/AB 4TH GEN NON-REACTIVE
[2020-05-29 09:14] LABS: HEPATITIS C ANTIBODY NON-REACTIVE
== END 2020-05-22 23:59 | disposition home or self-care (01) ==
LOC: LAB 08:00
PROVIDERS: ATTEND Obstetrics & Gynecology
DX: Z34.80 Encounter for supervision of other normal pregnancy, unspecified trimester (principal); Z36.89 Encounter for other specified antenatal screening; Z82.0 Family history of epilepsy and other diseases of the nervous system
CPT/HCPCS: 36415; 81220; 81243; 81329; 81599; 85025; 86592; 86762; 86787; 86803; 86850; 86900; 86901; 87340; 87389; 87491; 87591; 87661

== ENCOUNTER 2020-06-08 11:46 | Outpatient (CLI) | payer SELFPAY | END 2020-06-08 11:47 | disposition home or self-care (01) | LOC: LAB 11:46 | PROVIDERS: ATTEND Nurse Practitioner Family | DX: Z34.90 Encounter for supervision of normal pregnancy, unspecified, unspecified trimester (principal) | CPT/HCPCS: 36415 ==

== ENCOUNTER 2020-07-08 14:49 | Outpatient (CLI) | payer BC | END 2020-07-08 14:50 | disposition home or self-care (01) | LOC: LAB 14:49 | PROVIDERS: ATTEND Obstetrics & Gynecology | DX: Z34.80 Encounter for supervision of other normal pregnancy, unspecified trimester (principal) | CPT/HCPCS: 36415; 81599; 82105 ==

== ENCOUNTER 2020-08-01 14:49 | Emergency (ER) | payer OTHER, BC ==
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
--- OUTSIDE RECORDS SUMMARY | 2020-08-01 15:42 | EXTERNAL MEDICAL SUMMARY RPT | Continuity of Care Document ---
:1990 Demographics Phone Unavailable Preferred Language Unknown Marital Status Unknown Islam Affiliation Unknown Race Unknown Ethnic Group Unknown Author Organization [facility] Address [address] [id number] Phone Social History date description facility [phone]
[2020-08-01 15:59] VITALS: BP 112/65
== END 2020-08-01 16:00 | disposition home or self-care (01) ==
LOC: ED 14:49
DX: Z04.1 Encounter for examination and observation following transport accident (principal); V43.52XA Car driver injured in collision with other type car in traffic accident, initial encounter; Y92.410 Unspecified street and highway as the place of occurrence of the external cause; O99.891 Other specified diseases and conditions complicating pregnancy; R51.9 Headache, unspecified; Z3A.19 19 weeks gestation of pregnancy; Z87.891 Personal history of nicotine dependence
CPT/HCPCS: 99281

== ENCOUNTER 2020-08-11 15:17 | Outpatient (CLI) | payer BC ==
--- NOTE | 2020-08-11 19:10 | Ultrasound Report ---
PROCEDURE: OB Detailed Eval INDICATIONS: SUPERVISION OF OUTSIDE/PRIOR DATING DATA: Last menstrual period (LMP): 03/12/2020. LMP-based estimated date of delivery (ROSY): 12/17/2020. First dating scan (date and location): 05/11/2020. Estimated date of delivery (ROSY) from first dating scan: 12/27/2020. TECHNIQUE: Real-time scanning was performed of the fetus, with image documentation and biometric measurements. Endovaginal scanning: Not indicated COMPARISON: 05/11/2020 FINDINGS: General: A single living intrauterine gestation is present. Presentation: Breech Placenta: Placental position is anterior, without previa. Amniotic fluid index: 17.1 cm, 75.2 percentile for gestational age. heart rate: 144 beats per minute. Maternal cervical canal: 4.2 cm long; normal length is 2.5 cm or more. biometrics: Biparietal diameter: 5.06 cm, 21 weeks 2 days. Head circumference: 18.77 cm, 21 weeks, 1 day Abdominal circumference: 16.85 cm, 21 weeks, 6 days Femur length: Straight 0.5 cm, 21 weeks, 1 day Estimated gestational age from initial scan: 20 weeks, 2 days Composite gestational age from present scan: 21 weeks, 2 days Estimated weight and percentile: 425 g, 95.6%. Again noted is posterior uterine fibroid measures 6.5 x 4.2 x 5.9 cm on the current study. Anatomic survey: Neuro: Ventricles are normal at less than 10 mm. Cisterna magna is normal at 3-11 mm. Cerebellum i s normal in size and morphology. Nuchal skin fold: Normal at less than 6 mm between 14 and 20 weeks gestational age. Face: Nose and lips, facial profile are normal. Spine: No evidence for spina bifida. Heart: 4-chambered heart is present, with normal ventricular outflow tracts. Diaphragm: Diaphragm is intact. Stomach: Left-sided stomach is present. Kidneys: No hydronephrosis. Normal is less than 5 mm in 2nd trimester, less than 7 mm in 3rd trimester. Cord: 3 vessel cord has orthotopic insertion. Bladder: Normal in size. Extremities: All 4 extremities are visualized. IMPRESSION: 1. Single live intrauterine with fetus in breech presentation. heart rate is 144 bpm. Normal amount of amniotic fluid. Estimated weight is at 95th percentile. 2. Normal anatomic survey. 3. Again noted is posterior uterine fibroid slightly more prominent in size compared to previous stud y. Reviewed by: Ralph Comer MD on 08/11/2020 7:09 PM PDT Approved by: Ralph Comer MD on 08/11/2020 7:09 PM PDT Station ID: [id number]
== END 2020-08-11 15:18 | disposition home or self-care (01) ==
LOC: DI 15:17
PROVIDERS: ATTEND Obstetrics & Gynecology
DX: O34.12 Maternal care for benign tumor of corpus uteri, second trimester (principal); D25.9 Leiomyoma of uterus, unspecified; Z3A.21 21 weeks gestation of pregnancy

== ENCOUNTER 2020-09-15 15:54 | Outpatient (CLI) | payer BC ==
--- NOTE | 2020-09-16 09:15 | Ultrasound Report ---
PROCEDURE: OB F/U or Repeat INDICATIONS: SUPERVISION OF OUTSIDE/PRIOR DATING DATA: Last menstrual period (LMP): 03/11/2020. LMP-based estimated date of delivery (ROSY): 12/16/2020. First dating scan (date and location): 05/11/2020. Estimated date of delivery (ROSY) from first dating scan: 12/27/2020. The below data below was generated using the ultrasound ROSY of 05/11/20 TECHNIQUE: Real-time scanning was performed of the fetus, with image documentation and biometric measurements. COMPARISON: OB ultrasound 05/11/2020, 08/11/2020 FINDINGS: General: A single living intrauterine gestation is present. Presentation: Breech Placenta: Placental position is anterior, without previa. Amniotic fluid index: 19.2 cm, greater than 50% for gestational age. Largest pocket 5.4 cm heart rate: 136 beats per minute. Maternal cervical canal: 3.9 cm long; normal length is 2.5 cm or more. biometrics: Biparietal diameter: 6.7 cm 26 weeks 6 days Head circumference: 25.2 cm 27 weeks 3 days Abdominal circumference: 23.4 cm 27 weeks 5 days Femur length: 4.7 cm 25 weeks 4 days Estimated gestational age from initial scan: 25 weeks 2 days Composite gestational age from present scan: 26 weeks 6 days Estimated weight and percentile: 1000 g 96 percentile, unchanged Measurement variability in biometric dating: +/- 10 days from 12-20 weeks gestation, +/- 2 weeks from 20-30 weeks gestation, +/- 3 weeks at 30 weeks gestation or more. Other: Not applicable. IMPRESSION: 1. Single live intrauterine with persistent estimated weight at approximately the 96t h percentile. 2. TIMOTEO is within normal limits. Reviewed by: Arpita Lerma MD on 09/16/2020 9:14 AM PDT Approved by: Arpita Lerma MD on 09/16/2020 9:14 AM PDT Station ID: [id number]
== END 2020-09-15 15:55 | disposition home or self-care (01) ==
LOC: DI 15:54
PROVIDERS: ATTEND Obstetrics & Gynecology
DX: Z34.82 Encounter for supervision of other normal pregnancy, second trimester (principal); Z36.88 Encounter for antenatal screening for fetal macrosomia

== ENCOUNTER 2020-09-16 11:34 | Outpatient (CLI) | payer BC ==
[2020-09-16 11:56] LABS: HCT - HEMATOCRIT 32.8 % (37.0-47.0); HGB - HEMOGLOBIN 11.1 g/dL (12.0-16.0); MEAN CORPUSCULAR HEMOGLOBIN 31.9 pg (27.0-31.0); MEAN CORPUSCULAR HGB CONC 33.8 g/dL (32.0-36.0); MEAN CORPUSCULAR VOLUME 94.3 fL (81.0-99.0); MEAN PLATELET VOLUME 9.2 fL (7.9-10.8); RED BLOOD COUNT 3.48 10^6/uL (4.20-5.40); RED CELL DISTRIBUTION WIDTH 12.4 % (12.0-15.0); WHITE BLOOD COUNT 10.9 x10^3/uL (4.8-10.8)
[2020-09-16 12:18] LABS: ALBUMIN 3.4 g/dL (3.2-5.5); ALBUMIN/GLOBULIN RATIO 1.1 (1.0-2.2); BILIRUBIN,TOTAL 0.2 mg/dL (0.2-1.0); CALCIUM 8.9 mg/dL (8.5-10.3); CREATININE 0.3 mg/dL (0.4-1.0); POTASSIUM 3.8 mmol/L (3.5-5.0); TOTAL PROTEIN 6.5 g/dL (6.7-8.2)
== END 2020-09-16 11:35 | disposition home or self-care (01) ==
LOC: LAB 11:34
PROVIDERS: ATTEND Obstetrics & Gynecology
DX: O99.719 Diseases of the skin and subcutaneous tissue complicating pregnancy, unspecified trimester (principal); L29.8 Other pruritus
CPT/HCPCS: 36415; 80053; 81599; 82542; 85027

== ENCOUNTER 2020-10-05 12:16 | Outpatient (CLI) | payer BC | END 2020-10-05 12:17 | disposition home or self-care (01) | LOC: LAB 12:16 | PROVIDERS: ATTEND Obstetrics & Gynecology | DX: Z34.80 Encounter for supervision of other normal pregnancy, unspecified trimester (principal) | CPT/HCPCS: 36415; 82950 ==

== ENCOUNTER 2020-11-02 14:00 | Outpatient (CLI) | payer BC ==
[2020-11-02 14:13] LABS: HCT - HEMATOCRIT 31.2 % (37.0-47.0); MEAN CORPUSCULAR HEMOGLOBIN 32.1 pg (27.0-31.0); MEAN CORPUSCULAR HGB CONC 35.3 g/dL (32.0-36.0); MEAN PLATELET VOLUME 9.4 fL (7.9-10.8); RED BLOOD COUNT 3.43 10^6/uL (4.20-5.40); RED CELL DISTRIBUTION WIDTH 12.7 % (12.0-15.0); WHITE BLOOD COUNT 12.2 x10^3/uL (4.8-10.8)
[2020-11-02 14:32] LABS: % IRON SATURATION 33 % (20-50); IRON 160 ug/dL (28-170); TOTAL IRON BINDING CAPACITY 491 ug/dL (250-450); TRANSFERRIN 351 mg/dL (192-382)
== END 2020-11-02 14:01 | disposition home or self-care (01) ==
LOC: LAB 14:00
PROVIDERS: ATTEND Obstetrics & Gynecology
DX: O99.019 Anemia complicating pregnancy, unspecified trimester (principal); D50.9 Iron deficiency anemia, unspecified
CPT/HCPCS: 36415; 82728; 83540; 84466; 85027

== ENCOUNTER 2020-11-18 11:36 | Outpatient (CLI) | payer BC ==
[2020-11-18 12:12] LABS: HCT - HEMATOCRIT 31.9 % (37.0-47.0); HGB - HEMOGLOBIN 10.8 g/dL (12.0-16.0); MEAN CORPUSCULAR HEMOGLOBIN 31.2 pg (27.0-31.0); MEAN CORPUSCULAR HGB CONC 33.9 g/dL (32.0-36.0); MEAN CORPUSCULAR VOLUME 92.2 fL (81.0-99.0); MEAN PLATELET VOLUME 9.5 fL (7.9-10.8); RED BLOOD COUNT 3.46 10^6/uL (4.20-5.40); RED CELL DISTRIBUTION WIDTH 12.9 % (12.0-15.0); WHITE BLOOD COUNT 12.7 x10^3/uL (4.8-10.8)
[2020-11-18 12:37] LABS: % IRON SATURATION 38 % (20-50); IRON 187 ug/dL (28-170); TOTAL IRON BINDING CAPACITY 491 ug/dL (250-450); TRANSFERRIN 351 mg/dL (192-382)
== END 2020-11-18 11:37 | disposition home or self-care (01) ==
LOC: LAB 11:36
PROVIDERS: ATTEND Obstetrics & Gynecology
DX: O99.019 Anemia complicating pregnancy, unspecified trimester (principal)
CPT/HCPCS: 36415; 81599; 82728; 83020; 83540; 84466; 85014; 85018; 85027; 85041

== ENCOUNTER 2020-12-02 12:53 | Outpatient (CLI) | payer BC | END 2020-12-02 12:54 | disposition home or self-care (01) | LOC: LAB.R 12:53 | PROVIDERS: ATTEND Obstetrics & Gynecology | DX: Z34.80 Encounter for supervision of other normal pregnancy, unspecified trimester (principal); Z36.89 Encounter for other specified antenatal screening | CPT/HCPCS: 87797 ==

== ENCOUNTER 2020-12-09 13:00 | Outpatient (CLI) | payer BC ==
[2020-12-09 13:50] VITALS: BP 121/61
[2020-12-09] MEDS ORDERED: FERRIC GLUCONATE 125 MG in SODIUM CHLORIDE 0.9% 100ML 100 ML IV ONE (14:00)
== END 2020-12-09 14:48 | disposition home or self-care (01) ==
LOC: WFO 13:00 → FBP 13:07 → WFO 14:48
PROVIDERS: ATTEND Obstetrics & Gynecology
DX: O99.019 Anemia complicating pregnancy, unspecified trimester (principal)
CPT/HCPCS: 96365; J2916

== ENCOUNTER 2021-01-01 20:23 | Inpatient (IN) | payer BC ==
[2021-01-01] MEDS ORDERED: LIDOCAINE-MPF 1% 30 ML VIAL ID PRN (20:48)
[2021-01-01] MEDS ORDERED: SODIUM CHLORIDE FLUSH 0.9% 10 ML SYRINGE IVP PRN (20:48)
[2021-01-01] MEDS ORDERED: METHYLERGONOVINE 0.2 MG/ML VIAL IM PRN (20:48)
[2021-01-01] MEDS ORDERED: TRANEXAMIC ACID IN NACL 1,000 MG/100 ML BAG IV PRN (20:48)
[2021-01-01] MEDS ORDERED: CARBOPROST TROMETHAMINE 250 MCG/ML AMP IM PRN (20:48)
[2021-01-01] MEDS ORDERED: OXYTOCIN 10 UNIT/ML VIAL IM PRN (20:48)
[2021-01-01] MEDS ORDERED: OXYTOCIN/SODIUM CHLORIDE 500 ML IV PRN (20:48)
[2021-01-01] MEDS ORDERED: miSOPROStoL 200 MCG TABLET BC PRN (20:48)
[2021-01-01] MEDS ORDERED: LACTATED RINGERS 1,000 ML IV ONE (20:49)
[2021-01-01] MEDS: LACTATED RINGERS 1,000 ML IV SCH (21:00)
[2021-01-01 21:07] LABS: BASOPHILS % (AUTO) 0.3 %; EOSINOPHILS # (AUTO) 0.1 10^3/uL (0.0-0.7); EOSINOPHILS % (AUTO) 0.8 %; HCT - HEMATOCRIT 36.2 % (37.0-47.0); HGB - HEMOGLOBIN 12.3 g/dL (12.0-16.0); LYMPHOCYTES # (AUTO) 2.1 10^3/uL (1.5-3.5); LYMPHOCYTES % (AUTO) 14.8 %; MEAN CORPUSCULAR HEMOGLOBIN 31.4 pg (27.0-31.0); MEAN CORPUSCULAR VOLUME 92.3 fL (81.0-99.0); MEAN PLATELET VOLUME 9.7 fL (7.9-10.8); MONOCYTES % (AUTO) 7.2 %; NEUTROPHILS # (AUTO) 10.9 10^3/uL (1.5-6.6); NEUTROPHILS % (AUTO) 76.1 %; PLT - PLATELET COUNT 267 10^3/uL (130-450); RED BLOOD COUNT 3.92 10^6/uL (4.20-5.40); RED CELL DISTRIBUTION WIDTH 13.1 % (12.0-15.0); WHITE BLOOD COUNT 14.4 x10^3/uL (4.8-10.8)
[2021-01-01] MEDS ORDERED: ePHEDrine 50 MG/ML VIAL IVP PRN (22:33)
[2021-01-01] MEDS ORDERED: NALBUPHINE 10 MG/ML AMP IVP PRN (22:33)
[2021-01-01] MEDS ORDERED: ONDANSETRON 4 MG/2 ML VIAL IVP PRN (22:33)
[2021-01-01] MEDS ORDERED: NALOXONE 0.4 MG/ML VIAL IVP PRN (22:33)
[2021-01-01] MEDS ORDERED: ROPIVACAINE 0.2% 200 MG/100 ML BAG EP PRN (22:33)
--- NOTE | 2021-01-01 22:33 | ANESTHESIA ---
Pre-Anesthesia VS, & Labs - Diagnosis Active labor - Procedure vaginal delivery Vital Signs: Temp Pulse Resp BP Pulse Ox 36.8 C 85 20 100/56 L 01/01/21 20:52 01/01/21 20:52 01/01/21 20:52 01/01/21 20:52 Height: 5 ft 5 in Weight (kg): 83.915 kg Body Mass Index: 30.7 BMI Classification: Obese - NPO Other (clear liquids) - Is Patient ?: Yes - Lab Results Current Lab Results: Laboratory Tests 01/01/21 20:55: WBC 14.4 H, RBC 3.92 L, Hgb 12.3, Hct 36.2 L, MCV 92.3, MCH 31.4 H, MCHC 34.0, RDW 13.1, Plt Count 267, MPV 9.7, Neut # (Auto) 10.9 H, Lymph # (Auto) 2.1, [place] # (Auto) 1.0, Eos # (Auto) 0.1, Baso # (Auto) 0.0, Absolute Nucleated RBC 0.00, Nucleated RBC % 0.0 Fish Bones: 01/01/21 20:55 Home Medications and Allergies Active Medications Carboprost Tromethamine (Carboprost Tromethamine 250 Mcg/Ml Amp) 250 mcg IM Q15M PRN PRN Reason: Step 4: Hemorrhage protocol Stop: 01/06/21 20:49 Lactated Ringer's (Lr) 1,000 mls @ 150 mls/hr IV .Q6H40M AISLINN Oxytocin/Sodium Chloride (Pitocin/Sodium Chloride) 500 mls @ 999 mls/hr IV PRN PRN; Protocol PRN Reason: POST- HEMORR PREVENTION Stop: 01/06/21 20:49 Tranexamic Acid (Tranexamic 1,000 Mg/100ml-Nacl) 1,000 mg in 100 mls @ 600 mls/hr IV .ONCE PRN PRN Reason: EBL >1200mL and within 3hr Stop: 01/06/21 20:49 Lidocaine HCl (Lidocaine-Mpf 1% 30 Ml Vial) 30 ml ID .ONCE PRN PRN Reason: PERINEAL REPAIR Stop: 01/06/21 20:49 Methylergonovine Maleate (Methylergonovine 0.2 Mg/Ml Vial) 0.2 mg IM .ONCE PRN PRN Reason: Step 2: Hemorrhage protocol Stop: 01/06/21 20:49 Misoprostol (Misoprostol 200 Mcg Tablet) 800 mcg BC .ONCE PRN PRN Reason: Step 3: Hemorrhage protocol Stop: 01/06/21 20:49 Oxytocin (Oxytocin 10 Unit/Ml Vial) 10 unit IM .ONCE PRN PRN Reason: Step one: If no IV access Stop: 01/06/21 20:49 Sodium Chloride (Sodium Chloride Flush 0.9% 10 Ml Syringe) 10 ml IVP PRN PRN PRN Reason: NEEDED PER PROVIDER ORDERS Sodium Chloride (Sodium Chloride Flush 0.9% 10 Ml Syringe) 10 ml IVP 0100,0900,1700 AISLINN Pnv No.95/Ferrous Fum/Folic AC [ Caplet] 1 each PO 06/02/18 Allergies/Adverse Reactions: Allergies Allergy/AdvReac Type Severity Reaction Status Date / Time No Known Drug Allergies Allergy Verified 08/01/20 15:13 Anes History & Medical History - Anesthetic History Anesthesia Complications: reports: No previous complications - Medical History Cardiovascular: reports: None Pulmonary: reports: None Gastrointestinal: reports: GERD Urinary: reports: None Neuro: reports: None Musculoskeletal: reports: None Blood Disorders: reports: None Skin: reports: Eczema Smoking Status: Never smoker Psychosocial: reports: No issues indicated History of Cancer?: No - Surgical History Eyes Ears Nose Throat (EENT): reports: Other (sinus surgery) Orthopedic: reports: ACL reconstruction Exam General: Alert, Oriented x3, Cooperative, No acute distress Dental: WNL Mouth Openin Fingerbreadth Neck Mobility: Normal Mallampati classification: II Thyromental Distance: 4-6 cm Mental/Cognitive Status: Alert/Oriented X3, Normal for patient Plan Anesthesia Type: Epidural Consent for Procedure(s) Verified and Reviewed: Yes Code Status: Attempt Resuscitation ASA classification: 2-Mild systemic disease Is this case an emergency?: No
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
[2021-01-02] MEDS ORDERED: SODIUM CHLORIDE FLUSH 0.9% 10 ML SYRINGE IVP SCH (01:00)
[2021-01-02] MEDS: LACTATED RINGERS 1,000 ML IV SCH (01:09)
--- NOTE | 2021-01-02 06:06 | DELIVERY NOTE ---
Delivery Note - Labor Labor: positive: Spontaneous - Delivery Method Delivery Method: positive: Spontaneous vaginal delivery - Presentation Presentation: positive: Vertex - Nuchal Cord Nuchal Cord: positive: Present - Anesthetic Anesthetic Type: - Amniotic Fluid Description Amniotic Fluid Description: positive: Clear - Episiotomy Type Episiotomy Type: positive: None - Laceration Laceration: positive: 1st degree - Delivery Outcome Delivery Outcome: positive: Livebirth - [place] Shick[place]: positive: Placed in direct skin contact with mother, Suctioned, Bulb syringe, Stimulated, Warmed, [place] used, Warmer used [place] sex: positive: Female - Cord Cord: positive: 3 vessels - Placenta Placenta: positive: Intact, Spontaneous, Expressed - Estimated Blood Loss Estimated Blood Loss (in cc): 150 - Post Delivery Events Post Delivery Events: positive: No post delivery events - Delivery Comments (Free Text/Narrative) Delivery Comments (Free Text/Narrative): STAGE I: Patient is a 30 yo at 40+5 wga who presented in active labor. Initial SVE was 4/90/-2. She progressed to 6/90/-2 within an hour. Membranes intact. GBS negative with no indication for antibiotic prophylaxis. Epidural placed shortly after delivery. No indication for augmentation. Complete at 4:43 am on 01/02/21. Spontaneous rupture of membranes at 4:40 am. Category I tracing throughout Stage I labor with occasional decels. Decels increased in frequency in the time prior to rupture. Clear fluid. Complete at 4:43 am. STAGE II: Started pushing at 4:50. Delivered female infant from LAUREEN position at 5:04 am. Left shoulder anterior; delivered without difficulty. Tight nuchal cord no amenable to reduction, infant delivered through the cord. Infant was delivered to maternal chest. Slow transition noted and cord was clamped x2 and cut. [facility]. Apgars were 4/6/8. Cord gases were sent. A: 7.069/68.8/22.6/19.4/-12.5 V: 7.291/43.9/34.8/20.7/- 5.8 STAGE III: Placenta delivered at 5:10 am with manual expression. It was examined and found to be intact. Perineum was examined and had a small midline first degree laceration. Hemostatic and well apposed; no indication for repair. EBL 150 cc
[2021-01-02] MEDS ORDERED: ONDANSETRON ODT 4 MG TABLET TL PRN (06:11)
[2021-01-02] MEDS ORDERED: SIMETHICONE CHEW 80 MG TABLET PO PRN (06:11)
[2021-01-02] MEDS ORDERED: DOCUSATE SODIUM 100 MG CAPSULE PO PRN (06:11)
[2021-01-02] MEDS ORDERED: HYDROCORTISONE 1% CREAM 28 GM TUBE PR PRN (06:11)
--- NOTE | 2021-01-02 06:14 | DELIVERY NOTE ---
Delivery Note - Labor Labor: positive: Spontaneous - Delivery Method Delivery Method: positive: Spontaneous vaginal delivery - Presentation Presentation: positive: Vertex, LAUREEN - right occiput anterior - Nuchal Cord Nuchal Cord: positive: Present - Anesthetic Anesthetic Type: - Amniotic Fluid Description Amniotic Fluid Description: positive: Clear - Laceration Laceration: positive: 1st degree - [place] : positive: Placed in direct skin contact with mother, Suctioned, Bulb syringe, Stimulated, Warmed, [place] used, Warmer used [place] sex: positive: Female - Cord Cord: positive: 3 vessels - Placenta Placenta: positive: Intact, Spontaneous, Expressed - Estimated Blood Loss Estimated Blood Loss (in cc): 150 - Post Delivery Events Post Delivery Events: positive: No post delivery events - Delivery Comments (Free Text/Narrative) Delivery Comments (Free Text/Narrative): Patient is a 30 yo G
[2021-01-02] MEDS ORDERED: LACTATED RINGERS 1,000 ML IV SCH (07:00)
[2021-01-02] MEDS: ACETAMINOPHEN 500 MG TABLET PO PRN ×2 (08:05→16:45)
[2021-01-02] MEDS: IBUPROFEN 600 MG TABLET PO PRN ×3 (08:05→23:20)
[2021-01-03] MEDS: ACETAMINOPHEN 500 MG TABLET PO PRN ×2 (00:45→09:00)
[2021-01-03] MEDS: IBUPROFEN 600 MG TABLET PO PRN (05:39)
[2021-01-03 09:19] VITALS: BP 111/75
--- NOTE | 2021-01-03 11:18 | Discharge Plan ---
Discharge Plan Problem Reviewed?: Yes Disposition: Home, Self Care Condition: Good Prescriptions: Acetaminophen [Acetaminophen Extra Strength] 1,000 mg PO Q8H PRN #60 tablet PRN Reason: Pain Docusate Sodium 100Mg Capsule [Colace 100Mg Capsule] 100 - 200 mg PO BID PRN #60 cap PRN Reason: Constipation Ibuprofen [Motrin] 600 mg PO Q6H PRN #60 tab PRN Reason: Pain Diet: Regular Activity Restrictions: Additional Comments (Nothing in the vagina for 6 weeks: No intercourse, tampons, douching Call for: -Fever greater than 100.5 - Pain that does not improve with pain medication -Heavy bleeding in which you are soaking a pad an hour for 2 hours in a row No tub baths or hot tubs for 4 weeks) Shower Restrictions: No (No tub baths or hot tubs for 4 weeks) Additional Instructions or Follow Up instructions: Nothing in the vagina for 6 weeks: No intercourse, tampons, douching Call for: -Fever greater than 100.5 -Pain that does not improve with pain medication -Heavy bleeding in which you are soaking a pad an hour for 2 hours in a row No tub baths or hot tubs for 4 weeks No Smoking: If you smoke, Please STOP! Call for help. Follow-up with: Staci Matt MD [Provider Admit Priv/Credential] -
--- NOTE | 2021-01-03 11:46 | DISCHARGE SUMMARY ---
"Discharge Summary Admit Date: 01/01/21 Discharge Date: 01/03/21 Condition at Discharge: Good Discharge Disposition: 01 Home, Self Care - DIAGNOSES Admission Diagnoses: IUP at 40+4 wga Labor Discharge Diagnoses with Status of Each Condition: Same and delivery of term gestation - HPI History of Present Illness: Patient is a 30 yo at 40+5 wga who presents in labor. Patient reports contractions started earlier this evening. Initially about 8 minutes apart, then rapidly increased in intensity and frequency. No LOF. No VB. has been generally uncomplicated. Hx of posterior fibroid. Has had forceps assisted delivery in prior . Baseline anemia for which she has had iron infusion. Had been 4 cm dilated at initial presentation. Requested epidural upon admission. - CONSULTS | PROCEDURES Procedures: - HOSPITAL COURSE Hospital Course: STAGE I: Patient is a 30 yo at 40+5 wga who presented in active labor. Initial SVE was 4/90/-2. She progressed to 6/90/-2 within an hour. Membranes intact. GBS negative with no indication for antibiotic prophylaxis. Epidural placed shortly after delivery. No indication for augmentation. Complete at 4:43 am on 01/02/21. Spontaneous rupture of membranes at 4:40 am. Category I tracing throughout Stage I labor with occasional decels. Decels increased in frequency in the time prior to rupture. Clear fluid. Complete at 4:43 am. STAGE II: Started pushing at 4:50. Delivered female from LAUREEN position at 5:04 am. Left shoulder anterior; delivered without difficulty. Tight nuchal cord no amenable to reduction, infant delivered through the cord. Infant was delivered to maternal chest. Slow transition noted and cord was clamped x2 and cut. Infant was brought to [facility] for assessment by pediatric team. Apgars were 4/6/8. Cord gases were sent. A: 7.069/68.8/22.6/19.4/-12.5 V: 7.291/43.9/34.8/20.7/-5. 8 STAGE III: Placenta delivered at 5:10 am with manual expression. It was examined and found to be intact. Perineum was examined and had a small midline first degree laceration. Hemostatic and well apposed; no indication for repair. EBL 150 cc course was uncomplicated. Meeting goals for discharge by PPD#1. Routine discharge instructions were given. O positive/Rub imm - ALLERGIES Allergies/Adverse Reactions: Allergies Allergy/AdvReac Type Severity Reaction Status Date / Time No Known Drug Allergies Allergy Verified 08/01/20 15:13 - MEDICATIONS Home Medications: Ambulatory Orders Medication Instructions Recorded Confirmed Pnv No.95/Ferrous Fum/Folic AC 1 each PO 06/02/18 [ Caplet] Albuterol Sulf [Ventolin Hfa 1 - 2 puffs INH Q4HR PRN #1 inhaler 08/25/18 Inhaler] Acetaminophen [Tylenol] 650 mg PO Q6H PRN tablet 04/15/19 HYDROcod/ACETAM 5/325 [[place] 5/325] 1 tab PO Q4HR PRN #20 tablet 04/15/19 Ibuprofen [Motrin] 600 mg PO Q6H PRN #20 tablet 04/15/19 Acetaminophen [Acetaminophen Extra 1,000 mg PO Q8H PRN #60 tablet 01/03/21 Strength] Docusate Sodium 100Mg Capsule 100 - 200 mg PO BID PRN #60 cap 01/03/21 [Colace 100Mg Capsule] Ibuprofen [Motrin] 600 mg PO Q6H PRN #60 tab 01/03/21 - PHYSICAL EXAM AT DISCHARGE General Appearance: positive: No acute distress Respiratory: positive: No respiratory distress Cardiovascular: positive: Other (RR) Peripheral Pulses: positive: 2+ Abdomen: positive: Other (S&NT/ND. FF below umbi) Extremities: positive: Non-tender, No pedal edema Neurologic/Psychiatric: positive: Oriented x3 - LABS Result Diagrams: 01/01/21 20:55 - FOLLOW UP Follow Up: FU in one week with Dr. Matt - TIME SPENT Time Spent in Discharge (Minutes): 30"
== END 2021-01-03 12:25 | disposition home or self-care (01) | DRG 807 ==
LOC: WFO 20:23 → FBP 20:25 → WFO 20:56
PROVIDERS: ADMIT Obstetrics & Gynecology; ATTEND Obstetrics & Gynecology
PROC: 10E0XZZ Delivery of Products of Conception, External Approach (ICD-10-PCS; principal; 2021-01-02)
DX: O70.0 First degree perineal laceration during delivery (principal); Z37.0 Single live birth; O99.02 Anemia complicating childbirth; O69.81X0 Labor and delivery complicated by cord around neck, without compression, not applicable or unspecified; Z3A.40 40 weeks gestation of pregnancy; O99.214 Obesity complicating childbirth
CPT/HCPCS: 36415; 85025; 86850; 86900; 86901; A9270; J7120

== ENCOUNTER 2023-08-24 13:26 | Outpatient (CLI) | payer MEDICAID ==
[2023-08-24 13:35] LABS: BASOPHILS # (AUTO) 0.1 10^3/uL (0.0-0.1); BASOPHILS % (AUTO) 0.6 %; EOSINOPHILS # (AUTO) 0.1 10^3/uL (0.0-0.7); EOSINOPHILS % (AUTO) 0.7 %; HCT - HEMATOCRIT 42.1 % (37.0-47.0); HGB - HEMOGLOBIN 14.2 g/dL (12.0-16.0); LYMPHOCYTES # (AUTO) 1.6 10^3/uL (1.5-3.5); LYMPHOCYTES % (AUTO) 14.8 %; MEAN CORPUSCULAR HEMOGLOBIN 32.4 pg (27.0-31.0); MEAN CORPUSCULAR HGB CONC 33.7 g/dL (32.0-36.0); MEAN CORPUSCULAR VOLUME 96.1 fL (81.0-99.0); MEAN PLATELET VOLUME 9.3 fL (7.9-10.8); MONOCYTES # (AUTO) 0.6 10^3/uL (0.0-1.0); NEUTROPHILS # (AUTO) 8.3 10^3/uL (1.5-6.6); NEUTROPHILS % (AUTO) 77.6 %; PLT - PLATELET COUNT 295 10^3/uL (130-450); RED BLOOD COUNT 4.38 10^6/uL (4.20-5.40); RED CELL DISTRIBUTION WIDTH 12.1 % (12.0-15.0); WHITE BLOOD COUNT 10.6 x10^3/uL (4.8-10.8)
== END 2023-08-24 13:27 | disposition home or self-care (01) ==
LOC: LAB 13:26
PROVIDERS: ATTEND Obstetrics & Gynecology
DX: Z01.812 Encounter for preprocedural laboratory examination (principal)
CPT/HCPCS: 36415; 85025